=== PATIENT | female | born 1950 | race Caucasian/White ===

== ENCOUNTER 2022-01-11 10:00 | Outpatient (RCR) | payer MEDICARE, SELFPAY | END 2022-01-13 08:35 | disposition home or self-care (01) | PROVIDERS: PCP Physician Assistant Medical; Visit Provider Psychiatry & Neurology Neurology | DX: G43.009 Migraine without aura, not intractable, without status migrainosus (principal); M54.81 Occipital neuralgia; M62.838 Other muscle spasm; G44.86 Cervicogenic headache; M54.2 Cervicalgia; Z51.89 Encounter for other specified aftercare | CPT/HCPCS: 97110; 97140; 97535 ==

== ENCOUNTER 2022-03-09 08:40 | Outpatient (CLI) | payer MEDICARE, SELFPAY ==
[2022-03-09 14:25] LABS: Albumin* 4.6 g/dL (3.3-5.0)
[2022-03-09 14:26] LABS: Chloride* 103 mmol/L (96-114); Potassium* 4.9 mmol/L (3.6-5.1); Sodium* 141 mmol/L (135-149)
[2022-03-09 14:28] LABS: Bilirubin Total* 0.5 mg/dL (0.1-1.5); Carbon Dioxide* 30 mmol/L (20-32); Cholesterol* 191 mg/dL (90-199); Creatinine* 0.5 mg/dL (0.5-1.5); Estimated Glomerular Filt Rate 101 ml/min
[2022-03-09 14:29] LABS: Alanine Aminotransferase* 20 U/L (4-35); Alkaline Phosphatase* 111 U/L (40-150); Aspartate Amino Transferase* 28 U/L (12-35); Blood Urea Nitrogen* 15 mg/dL (7-30); Calcium* 9.5 mg/dL (8.4-10.6); Glucose* 107 mg/dL (60-115); HDL Cholesterol* 97 mg/dL (>=50); LDL Cholesterol Calculated 83 mg/dL (<100); Total Protein* 7.6 g/dL (6.0-8.3); Triglycerides* 54 mg/dL (40-149)
== END 2022-03-09 08:41 | disposition home or self-care (01) ==
PROVIDERS: PCP Physician Assistant Medical; Visit Provider Physician Assistant Medical
DX: Z00.00 Encounter for general adult medical examination without abnormal findings (principal); E78.5 Hyperlipidemia, unspecified; F41.9 Anxiety disorder, unspecified; E87.5 Hyperkalemia; R80.9 Proteinuria, unspecified
CPT/HCPCS: 80053; 80061; 84443

== ENCOUNTER 2022-04-27 13:09 | Outpatient (CLI) | payer MEDICARE, SELFPAY ==
--- NOTE | 2022-04-27 13:30 | CRLHL7_ITS ---
For Patients: As a result of the Century Cures Act, medical imaging exams and procedure reports are released immediately into your electronic medical record. You may view this report before your referring provider. If you have questions, please contact your health care provider. DXA BONE MINERAL DENSITY STUDY Reason for exam: Osteopenia. Current height (in): 69.5. Weight (lb): 130. Menopause age: 53. Ethnicity: White. 1. Have you had a previous hip or vertebral fracture? No. 2. Have you had any fractures during your adult life which did not result from significant trauma (e.g., auto accident)? No. 3. Did either of your parents have a hip fracture? No. 4. Do you smoke? No. 5. Have you ever taken Glucocorticoids? No. 6. Do you have rheumatoid arthritis? No. 7. Do you have secondary osteoporosis? No. 8. Do you drink 3 or more alcoholic drinks per day? No. 9. Are you being treated for osteoporosis? No. 10. Have you ever taken any of the following medications: Actonel, Evista, Fosamax, Miacalcin, Reclast, Boniva, Forteo, HRT (i.e., estrogen/hormone therapy), Protelos, Prolia, Vitamin D, Calcium, other ??? please specify. ANSWER: Yes, vitamin D and calcium. 11. Do you have any of the following medical conditions: Anorexia or bulimia, asthma or emphysema, end stage renal disease, hyperparathyroidism, any seizure disorders, cancer, inflammatory bowel diseases, hysterectomy, other ??? please specify. ANSWER: Yes, inflammatory bowel disease. 12. What was your maximum height (inches)? 70.5. 13. Do you perform weight bearing exercise regularly? Yes. 14. Do you regularly consume dairy products? Yes. 15. Do you drink caffeinated beverages? No. If female: 16. At what age did your period start? 17. 17. Are you premenopausal? No. 18. How many full-term pregnancies have you had? 2. 19. Have you ever missed your period for more than 6 months in a row (not including or menopause)? No. TECHNIQUE: Bone mineral density study was performed using the [employer]. FINDINGS: The results of the study expressed as bone mineral density (BMD) are as follows: Lumbar spine L1 to L3: BMD: 1.066 g/cm2. T-score: 0.4. Z-score: 2.5 Neck Left: BMD: 0.712 g/cm2. T-score: -1.2. Z-score: 0.6 Right: BMD: 0.626 g/cm2. T-score: -2.0. Z-score: -0.2 Total Left: BMD: 0.844 g/cm2. T-score: -0.8. Z-score: 0.7 Right: BMD: 0.810 g/cm2. T-score: -1.1. Z-score: 0.5 IMPRESSION: Osteopenia. *Comparison exams done prior to 11/2019 were performed on different unit, [facility] [employer]. COMPARISON: Compared with scan of 03/27/2019, the bone mineral density has increased by 27.8 percent at the spine and increased by 1.3 percent at the hip. Compared with scan of 03/12/2017, the bone mineral density has increased by 2.3 percent at the spine and increased by 1.4 percent at the hip. FRAX 10-year Fracture Risk Major Osteoporotic Fracture: 9.7% Hip Fracture: 2.0% Reported Risk Factors: [place] () Neck BMD=0.626, BMI=18.9 Kemal Ugalde M.D. Diagnostic Radiologist [email or web address] lees/Dictated by: Kemal Ugalde MD @ 04/28/2022 8:13:00 AM (Electronically Signed)
== END 2022-04-27 13:10 | disposition home or self-care (01) ==
LOC: RAD 13:09
PROVIDERS: PCP Physician Assistant Medical; Visit Provider Physician Assistant Medical
DX: M85.80 Other specified disorders of bone density and structure, unspecified site (principal); M85.89 Other specified disorders of bone density and structure, multiple sites
CPT/HCPCS: 77080

== ENCOUNTER 2022-06-08 07:41 | Outpatient (CLI) | payer MEDICARE, SELFPAY ==
--- NOTE | 2022-06-08 08:00 | NM_ITS ---
Final Report Patient: MARRY MEESK Facility:?[facility] Patient ID:?[id number] Study:?NM Cardiac Procedure MYOCARDIAL PERFUSION-06/08/2022 10:43:05 AM Ordering Physician:LARRY Final Report: [facility] ? [facility] MYOCARDIAL PERFUSION SCAN CLINICAL HISTORY: 71-year-old female. Atrial fibrillation. Hypercholesterolemia. Family history of heart disease. Height 5 feet 10 inches, weight 130 pounds. TECHNIQUE: (Resting SPECT and Stress Gated SPECT with wall motion and ejection fraction) Stress: Treadmill (5 minutes 50 seconds) Maximum heart rate: 143 bpm Maximum systolic blood pressure: 170 mmHg systolic Rate pressure product: 24,310 Dose (Stress/Rest): 32.2 mCi/8.08 mCi Tc-99m Sestamibi (IV) Comparison: None FINDINGS: There is good uptake of activity by the left ventricle. No left ventricular enlargement is noted. End-diastolic volume 79 mL. End-systolic volume 11 mL. Mild motion artifact on stress and rest images. There are no significant fixed or reversible defects identified to indicate infarct or ischemia. Gated images demonstrate a normal left ventricular ejection fraction of greater than 70 percent. No regional wall motion abnormalities are identified. IMPRESSION: 1. No evidence of significant myocardial ischemia or infarction. 2. Normal left ventricular ejection fraction of greater than 70 percent. This study was jointly reviewed by radiology and cardiology. OKSANA TAY M.D. Diagnostic/Nuclear Medicine Radiologist [email or web address] ESTELA/travis D& Transcribed: 4:10 pm SILVERIO PENA M.D. CO-READER Cardiology DW/Dictated by: Oksana Tay MD @ 06/08/2022 2:28:00 PM (Electronic Signature)
--- NOTE | 2022-06-08 09:53 | P.STN_ITS ---
Stress Test Note Date Time Seen by Provider: Date Seen: 06/08/22 Date of test: 06/08/22 Providers Referring provider: Gato Ruiz Primary care provider: Mya Johnson Stress test physician: Jody Bradford Stress Test Note Stress test ordered: Stress Myoview Indication for test: Atrial fibrillation, episodes of heavy pounding heart. Results discussion: Resting EKG: Sinus bradycardia, 50 beats per minute. Flipped T-waves V1. Resting blood pressure: 130/76 Stress test: Patient exercised on the treadmill following standard Shad protocol. Radioisotope was infused at target heart rate. Patient was able to exercise a bit longer. Stress test was terminated for reaching maximum heart rate inpatient becoming short of breath with the level of activity. She stated she had no chest symptoms. Patient was able to exercise to 7 minutes 31 sec onds. She achieved a maximum heart rate of 143 beats per minute which was 111% of a calculated target of 128. She had a a rate pressure product of 23,881 based on a systolic blood pressure 167 heart rate of 143. No arrhythmia, no concerning EKG changes. Patient discharged to have post stress imaging in stable condition. Impression: Subjectively negative, objectively negative EKG portion of this stress Myoview. Follow up suggested: Patient will be discharged after she has had her post stress imaging. She will await a report from the ordering test manager.
[2022-06-08 10:00] VITALS: BP 135/77; PULSE 66
== END 2022-06-08 07:42 | disposition home or self-care (01) ==
LOC: STRESS 07:41
PROVIDERS: PCP Physician Assistant Medical; Visit Provider Internal Medicine
DX: I48.0 Paroxysmal atrial fibrillation (principal)
CPT/HCPCS: 78452; 93016; 93017; A9500

== ENCOUNTER 2022-07-27 08:58 | Outpatient (CLI) | payer MEDICARE, SELFPAY ==
--- NOTE | 2022-07-27 09:15 | CRLHL7_ITS ---
For Patients: As a result of the Cures Act, medical imaging exams and procedure reports are released immediately into your electronic medical record. You may view this report before your referring provider. If you have questions, please contact your health care provider. BILATERAL SCREENING MAMMOGRAM WITH COMPUTER-AIDED DETECTION AND TOMOSYNTHESIS TECHNIQUE: CC and MLO views were obtained. These mammographic images have been obtained using full-field digital technique. These mammographic images were interpreted with the benefit of computer-aided detection. Breast Tomosynthesis was used in this interpretation. COMPARISON FILM: 07/15/21, 06/28/20, 06/02/20. FINDINGS: The breasts are heterogeneously dense, which may obscure small masses IMPRESSION: There is no radiographic evidence for malignancy. ASSESSMENT: BI-RADS Category 2: Benign RECOMMENDATION: Routine screening mammogram in 1 year. A lay language report of this examination will be provided to the patient. Kemal Ugalde M.D. Diagnostic Radiologist [email or web address] Transcribed: 1:52 p.joi lees/Dictated by: Kemal Ugalde MD @ 07/27/2022 10:13:00 AM (Electronically Signed)
== END 2022-07-27 08:59 | disposition home or self-care (01) ==
LOC: MAMMO 08:59
PROVIDERS: PCP Physician Assistant Medical; Visit Provider Physician Assistant Medical
DX: Z12.31 Encounter for screening mammogram for malignant neoplasm of breast (principal); R92.2 Inconclusive mammogram
CPT/HCPCS: 77063; 77067

== ENCOUNTER 2023-03-08 08:06 | Outpatient (CLI) | payer MEDICARE, SELFPAY | END 2023-03-08 08:07 | disposition home or self-care (01) | LOC: NFLDREF 03-12 12:57 | PROVIDERS: PCP Physician Assistant Medical; Referring Provider Physician Assistant Medical; Visit Provider Physician Assistant Medical | DX: Z00.00 Encounter for general adult medical examination without abnormal findings (principal); E78.5 Hyperlipidemia, unspecified; E87.5 Hyperkalemia; R53.83 Other fatigue; I48.91 Unspecified atrial fibrillation; F41.9 Anxiety disorder, unspecified | CPT/HCPCS: 80053; 80061; 84443 ==

== ENCOUNTER 2023-11-22 08:00 | Outpatient (CLI) | payer MEDICARE, SELFPAY | END 2023-11-22 08:01 | disposition home or self-care (01) | LOC: NFLDREF 11-26 20:42 | PROVIDERS: PCP Physician Assistant Medical; Referring Provider Physician Assistant Medical; Visit Provider Internal Medicine Nephrology | DX: R80.9 Proteinuria, unspecified (principal); E78.5 Hyperlipidemia, unspecified; E87.5 Hyperkalemia | CPT/HCPCS: 80061; 80069; 82043; 82570; 84450; 84460; 84550; 86140; 87086 ==

== ENCOUNTER 2024-01-25 18:58 | Emergency (ER) | payer MEDICARE, SELFPAY ==
[2024-01-25 19:04] VITALS: BP 132/78; PULSE 64; RESP 18; O2SAT 97; BMI 19.9
--- NOTE | 2024-01-25 20:53 | CRLHL7_ITS ---
For Patients: As a result of the Cures Act, medical imaging exams and procedure reports are released immediately into your electronic medical record. You may view this report before your referring provider. If you have questions, please contact your health care provider. Indication: Injury, pain. Technique: Right foot, 3 views. Comparison: None. Findings/Impression: Bones: Alignment is normal. No displaced fractures or bone lesions. Joint spaces: Unremarkable. Soft tissues: Unremarkable. Dictated by Roly Moon MD @ 01/25/2024 10:08:47 PM (Electronically Signed)
--- NOTE | 2024-01-25 21:14 | ED.LOWEXIN ---
HPI - Extremity Injury (Lower) General Chief Complaint: Extremity Pain/Injury, Lower Stated Complaint: R foot injury Time Seen by Provider: 01/25/24 20:22 Source: patient Mode of arrival: ambulatory Limitations: no limitations History of Present Illness HPI Narrative: Patient is a 73-year-old female presenting for right foot pain. States roughly 16:00 she had some cramping of her right foot while she was sitting in her chair reading a book. Since then she has been having pain in lateral arch of her right foot. Denies ever having pain like this before. Denies having issues with cramping in the past. No history of electrolyte abnormalities. Denies any injuries to this foot. Was concerned it could be related to a blood clot. No history of blood clots. Is not having any sensory deficits at this time. No calf pain. Denies leg swelling. Related Data Home Medications ?Medication ?Instructions ?Recorded ?Confirmed Lactobacillus PO 03/09/22 11/26/23 Melatonin PO 03/09/22 11/26/23 betamethasone dipropionate 0.05 % 1 topical BID 03/09/22 11/26/23 topical ointment calcium citrate 315 mg-vitamin D3 1 tab PO BID 03/09/22 01/25/24 5 mcg (200 unit) tablet flecainide 50 mg tablet mg PO BID 03/09/22 11/26/23 folic acid 800 mcg tablet 800 mcg PO DAILY 03/09/22 01/25/24 mesalamine 1.2 gram tablet,delayed g PO BID 03/09/22 11/26/23 release omega-3 fatty acids 1,000 mg 1,000 mg PO QDAY 03/09/22 01/25/24 capsule pantoprazole 20 mg tablet,delayed mg PO DAILY 03/09/22 11/26/23 release polyethylene glycol 3350 17 g PO BID 03/09/22 11/26/23 gram/dose oral powder triamcinolone acetonide 0.1 % 0.1 topical PRN 03/09/22 11/26/23 topical ointment apixaban 5 mg tablet (Eliquis) 5 mg PO BID 09/01/22 01/25/24 gabapentin 100 mg capsule 200 mg PO TID 09/01/22 01/25/24 mupirocin 2 % topical ointment 1 applic topical .prn PRN 09/01/22 01/25/24 patiromer calcium sorbitex 16.8 16.8 g PO Q OTHER DAY 11/27/22 01/25/24 gram oral powder packet clobetasol 0.05 % topical cream 1 applic topical BID 03/14/23 01/25/24 triamcinolone acetonide 0.1 % 1 applic topical BID-TID 03/14/23 01/25/24 topical cream dicyclomine 20 mg tablet 10 mg PO ONCE 04/19/23 01/25/24 metoprolol succinate 25 mg 12.5 mg PO QDAY 04/19/23 01/25/24 tablet,extended release 24 hr Previous Rx's ?Medication ?Instructions ?Recorded atorvastatin 10 mg tablet 10 mg PO .Bedtime #90 tabs 03/12/23 sertraline 25 mg tablet 25 mg PO DAILY #90 tabs 03/12/23 sumatriptan succinate 100 mg tablet 100 mg PO ONCE #9 tabs 01/10/24 Allergies Allergy/AdvReac Type Severity Reaction Status Date / Time amoxicillin Allergy Unknown Gastrointestinal Verified 01/25/24 19:07 Upset Sulfa (Sulfonamide Allergy Unknown Hives Verified 01/25/24 19:07 Antibiotics) Review of Systems Narrative: Pertinent systems reviewed and were negative unless stated HPI PFSH PFS Medical History (Updated 01/25/24 @ 22:25 by Vahid Babcock DO) Bronchitis ?J40 - Bronchitis, not specified as acute or chronic (ICD-10) Cough ?R05.9 - Cough, unspecified (ICD-10) Osteoporosis ?M81.0 - Age-related osteoporosis without current pathological fracture (ICD-10) Herpes zoster ?B02.9 - Zoster without complications (ICD-10) Surgical History (Updated 03/15/23 @ 09:10 by Kayla Thakkar ~ [facility]) Cataract ?H26.9 - Unspecified cataract (ICD-10) History of colonoscopy ?Z98.890 - Other specified postprocedural states (ICD-10) Family History (Updated 03/08/22 @ 20:54 by Lizbeth Meek) Paternal Grandmother Breast cancer Paternal Grandfather Coronary artery disease Father Hearing loss Hyperchloremia High blood pressure Colon polyps Mother ALS (amyotrophic lateral sclerosis) Hyperchloremia High blood pressure Brother Colon polyps Uncle Pancreatic cancer Social History Smoking Status: Never smoker Little interest or pleasure in doing things: not at all Feeling down, depressed, or hopeless: not at all Exam Narrative: Exam Narrative: Const: Well-nourished, Well-developed, in mild distress Eyes: PERRL, no conjunctival injection, and symmetrical lids HENT: Atraumatic external nose and ears. Moist mucous membranes. Extremities: Dorsalis pedis pulses +2 bilaterally MSK:Extremities w/o deformity, Normal Active ROM, tenderness noted at the 5th metatarsal base. Skin: Warm, Dry. No rashes or lesions. Neuro: Normal Muscle tone, No focal neurological deficits. Psych: Awake, Alert, & Oriented x3. Appropriate mood and affect. Const: Vital Signs, click to edit/add: Vital Signs - 24 hr 01/25/24 19:04 Pulse Rate [Pulse Oximeter] 64 Respiratory Rate 18 Blood Pressure [Ri ght Upper Arm] 132/78 Pulse Oximetry 97 Oxygen Delivery Me thod Room Air Course Vital Signs Vital signs: Initial Vital Signs Temperature Source Temporal Artery Scan 01/25/24 19:04 Pulse Rate 64 01/25/24 19:04 Respiratory Rate 18 01/25/24 19:04 Blood Pressure 132/78 01/25/24 19:04 Blood Pressure Mean 96 01/25/24 19:04 Blood Pressure Position Sitting 01/25/24 19:04 Pulse Oximetry 97 01/25/24 19:04 Oxygen Delivery Method Room Air 01/25/24 19:04 Vital Signs Pulse Rate 64 01/25/24 19:04 Respiratory Rate 18 01/25/24 19:04 Blood Pressure 132/78 01/25/24 19:04 Pulse Oximetry 97 01/25/24 19:04 Oxygen Delivery Method Room Air 01/25/24 19:04 Pulse Rate 64 01/25/24 19:04 Respiratory Rate 18 01/25/24 19:04 Blood Pressure 132/78 01/25/24 19:04 Pulse Oximetry 97 01/25/24 19:04 Oxygen Delivery Method Room Air 01/25/24 19:04 MDM - Extremity Injury (Lower) MDM Narrative Medical decision making narrative: Patient is a 73-year-old female presenting for right foot pain. At this time seems very unlikely to be related to a blood clot as she is having no leg swelling we do not, as he clinically relevant blood clots in the foot. Could be a muscle strain causing the issue from the cramp. Will do an x-ray though to make sure there are no fractures. Is not wanting anything for pain at this time. X-ray returned shows no concerning abnormalities. I believe most likely she had a muscle strain that occurred from the muscle spasm causing her pain. She will be discharged at this time she is agreeable to this plan. Imaging Data Right foot x-ray: Radiologist's impression: Bones: Alignment is normal. No displaced fractures or bone lesions. Joint spaces: Unremarkable. Soft tissues: Unremarkable. Dictated by Roly Moon MD @ 01/25/2024 10:08:47 PM Discharge Plan Discharge Clinical Impression: Strain of foot, right Patient Disposition: Home, Self-Care Condition: Stable Instructions: Muscle Strain (DC) Additional Instructions: Use the João wrap to help with symptoms. Take Tylenol as needed for pain. Also try ice for 20 minutes at a time up to 3 times a day. Prescriptions: No Action mesalamine 1.2 gram tablet,delayed release (DR/EC) PO BID calcium citrate-vitamin D3 315 mg-5 mcg (200 unit) tablet 1 tab PO BID folic acid 800 mcg tablet 800 mcg PO DAILY betamethasone dipropionate 0.05 % ointment 1 topical BID polyethylene glycol 3350 17 gram/dose powder PO BID flecainide 50 mg tablet PO BID triamcinolone acetonide 0.1 % ointment 0.1 topical PRN pantoprazole 20 mg tablet,delayed release (DR/EC) PO DAILY omega-3 fatty acids 1,000 mg capsule 1,000 mg PO QDAY Melatonin PO Lactobacillus PO patiromer calcium sorbitex 16.8 gram powder in packet 16.8 g PO Q OTHER DAY dicyclomine 20 mg tablet 10 mg PO ONCE metoprolol succinate 25 mg tablet extended release 24 hr 12.5 mg PO QDAY Patient Comments: QOD Eliquis 5 mg tablet 5 mg PO BID mupirocin 2 % ointment 1 applic topical .prn PRN gabapentin 100 mg capsule 200 mg PO TID atorvastatin 10 mg tablet 10 mg PO .Bedtime Qty: 90 3RF Rx Instructions: once daily for cholesterol sertraline 25 mg tablet 25 mg PO DAILY Qty: 90 3RF triamcinolone acetonide 0.1 % cream 1 applic topical BID-TID clobetasol 0.05 % cream 1 applic topical BID sumatriptan succinate 100 mg tablet 100 mg PO ONCE Qty: 9 2RF Follow Up/Referrals: Mya Johnson PA-C [Primary Care Provider] - Stand Alone Forms: [facility] Info Instructions
== END 2024-01-25 22:51 | disposition home or self-care (01) ==
PROVIDERS: Emergency Provider Student in an Organized Health Care Education/Training Program; PCP Physician Assistant Medical
DX: S96.111A Strain of muscle and tendon of long extensor muscle of toe at ankle and foot level, right foot, initial encounter (principal)
CPT/HCPCS: 73630; 99282; 99283

== ENCOUNTER 2024-02-21 10:56 | Outpatient (CLI) | payer MEDICARE, SELFPAY | END 2024-02-21 10:57 | disposition home or self-care (01) | PROVIDERS: PCP Physician Assistant Medical; Visit Provider Physician Assistant Medical | DX: R53.83 Other fatigue (principal); R63.4 Abnormal weight loss; E87.5 Hyperkalemia; K51.90 Ulcerative colitis, unspecified, without complications | CPT/HCPCS: 80053; 82306; 82607; 84443; 86140 ==

== ENCOUNTER 2024-02-28 08:27 | Outpatient (CLI) | payer MEDICARE, SELFPAY ==
--- NOTE | 2024-02-28 09:00 | CRLHL7_ITS ---
For Patients: As a result of the Century Cures Act, medical imaging exams and procedure reports are released immediately into your electronic medical record. You may view this report before your referring provider. If you have questions, please contact your health care provider. INDICATION: 75 year-old female. Abnormal weight loss. Gastroesophageal reflux disease without esophagitis. Right hip pain. TECHNIQUE: Contrast-enhanced CT of the chest abdomen and pelvis. 64 cc nonionic Isovue-370 administered. COMPARISON: Correlation is made with an abdominal pelvic CT January 01, 2018. FINDINGS: CT chest: Biapical fibrosis/pleural thickening. Both lungs are otherwise clear. No pneumothoraces, nodules, pleural, or pericardial effusions. No evidence for thoracic lymphadenopathy. The included thyroid gland and breasts are unremarkable. Dense coronary artery calcifications and/or coronary artery stents particularly in the LAD territory. Vascular calcification within a normal caliber thoracic aorta. CT of the abdomen and pelvis: The liver, spleen, pancreas, gallbladder, and adrenal glands are normal. 2.1 cm cyst superior pole right kidney. No renal stone or hydronephrosis. Dense arterial vascular calcification within the abdominal aorta and iliac arteries. Normal inferior vena cava. No small or large bowel obstruction. No ascites or lymphadenopathy. Diminutive postmenopausal uterus. The urinary bladder is unremarkable. No adnexal mass. No evidence for appendicitis or diverticular disease. No ascites or lymphadenopathy. The included skeleton demonstrates a partial compression fracture of the superior endplate of T11 new when compared to the prior abdominal pelvic CT January 01, 2018. Multilevel degenerative disc disease L1 through L5. No acute fractures. The included skeleton is negative for lytic or blastic lesions. Mild symmetric narrowing of the hip joints. No hip fracture or dislocation identified. IMPRESSION: 1. No evidence for occult malignancy or metastatic disease. 2. Biapical fibrosis/pleural thickening. 3. No acute cardiopulmonary or abdominopelvic process identified. 4. Partial compression fracture superior endplate T11 new when compared to January 01, 2018. Please note that all CT scans at this facility use dose modulation, iterative reconstruction, and/or weight-based dosing when appropriate to reduce radiation dose to as low as reasonably achievable. Dictated by Viral Becker MD @ 02/28/2024 12:32:50 PM (Electronically Signed)
== END 2024-02-28 08:28 | disposition home or self-care (01) ==
LOC: CT 08:27
PROVIDERS: PCP Physician Assistant Medical; Visit Provider Physician Assistant Medical
DX: R63.4 Abnormal weight loss (principal); J84.10 Pulmonary fibrosis, unspecified; K21.9 Gastro-esophageal reflux disease without esophagitis; M48.54XS Collapsed vertebra, not elsewhere classified, thoracic region, sequela of fracture; R41.89 Other symptoms and signs involving cognitive functions and awareness; R53.83 Other fatigue; R63.0 Anorexia; M25.551 Pain in right hip
CPT/HCPCS: 71260; 74177; Q9967

== ENCOUNTER 2024-03-13 13:48 | Outpatient (CLI) | payer MEDICARE, SELFPAY ==
--- NOTE | 2024-03-13 14:00 | CRLHL7_ITS ---
For Patients: As a result of the Century Cures Act, medical imaging exams and procedure reports are released immediately into your electronic medical record. You may view this report before your referring provider. If you have questions, please contact your health care provider. DXA BONE MINERAL DENSITY STUDY Reason for exam: Screening. Current height (in): 70. Weight (lb): 130. Menopause age: 53. Ethnicity: White. 1. Have you had a previous hip or vertebral fracture? Yes. 2. Have you had any fractures during your adult life which did not result from significant trauma (e.g., auto accident)? Yes. 3. Did either of your parents have a hip fracture? No. 4. Do you smoke? No. 5. Have you ever taken Glucocorticoids? No. 6. Do you have rheumatoid arthritis? No. 7. Do you have secondary osteoporosis? No. 8. Do you drink 3 or more alcoholic drinks per day? No. 9. Are you being treated for osteoporosis? No. 10. Have you ever taken any of the following medications: Actonel, Evista, Fosamax, Miacalcin, Reclast, Boniva, Forteo, HRT (i.e. estrogen/hormone therapy), Protelos, Prolia, Vitamin D, Calcium, other ??? please specify. ANSWER: Yes, Fosamax, vitamin D, calcium. 11. Do you have any of the following medical conditions: Anorexia or bulimia, asthma or emphysema, end stage renal disease, hyperparathyroidism, any seizure disorders, cancer, inflammatory bowel diseases, hysterectomy, other ??? please specify. ANSWER: Yes, Inflammatory bowel disease. 12. What was your maximum height (inches)? 70.5. 13. Do you perform weight bearing exercise regularly? Yes. 14. Do you regularly consume dairy products? Yes. 15. Do you drink caffeinated beverages? No. 16. At what age did your period start? 17. 17. Are you premenopausal? No. 18. How many full-term pregnancies have you had? 2. 19. Have you ever missed your period for more than 6 months in a row (not including or menopause)? No. TECHNIQUE: Bone mineral density study was performed using the [employer]. FINDINGS: The results of the study expressed as bone mineral density (BMD) are as follows: Lumbar spine L1: BMD: 0.901 g/cm2. T-score: -0.8. Z-score: 1.2. Neck Left: BMD: 0.683 g/cm2. T-score: -1.5. Z-score: 0.4. Right: BMD: 0.642 g/cm2. T-score: -1.9. Z-score: 0.1. Total Left: BMD: 0.858 g/cm2. T-score: -0.7. Z-score: 1.0. Right: BMD: 0.885 g/cm2. T-score: -0.5. Z-score: 1.2. IMPRESSION: Osteopenia. *Comparison exams done prior to 11/2019 were performed on different unit, [facility]. COMPARISON: Compared with scan of 04/27/2022, the bone mineral density has increased by 0.2 percent at the spine and increased by 5.3 percent at the hip. Compared with scan of 03/27/2019, the bone mineral density has increased by 21.5 percent at the spine and increased by 1.3 percent at the hip. Kemal Ugalde M.D. Diagnostic Radiologist [email or web address] [email or web address] / bM/Dictated by: Kemal Ugalde MD @ 03/14/2024 12:09:00 PM (Electronically Signed)
== END 2024-03-13 13:49 | disposition home or self-care (01) ==
LOC: RAD 13:48
PROVIDERS: PCP Physician Assistant Medical; Visit Provider Physician Assistant Medical
DX: Z13.820 Encounter for screening for osteoporosis (principal); M85.89 Other specified disorders of bone density and structure, multiple sites; Z78.0 Asymptomatic menopausal state
CPT/HCPCS: 77080

== ENCOUNTER 2024-04-15 14:46 | Outpatient (CLI) | payer MEDICARE, SELFPAY ==
--- NOTE | 2024-04-15 15:00 | CRLHL7_ITS ---
For Patients: As a result of the Century Cures Act, medical imaging exams and procedure reports are released immediately into your electronic medical record. You may view this report before your referring provider. If you have questions, please contact your health care provider. BILATERAL SCREENING MAMMOGRAM WITH COMPUTER-AIDED DETECTION AND TOMOSYNTHESIS TECHNIQUE: CC and MLO views were obtained. These mammographic images have been obtained using full-field digital technique. These mammographic images were interpreted with the benefit of computer-aided detection. Breast Tomosynthesis was used in this interpretation. COMPARISON FILM: 07/27/22, 07/15/21, 06/28/20. FINDINGS: The breasts are heterogeneously dense, which may obscure small masses IMPRESSION: There is no radiographic evidence for malignancy. ASSESSMENT: BI-RADS Category 2: Benign RECOMMENDATION: Routine screening mammogram in 1 year. A lay language report of this examination will be provided to the patient. Kemal Ugalde M.D. Diagnostic Radiologist [email or web address] VITOR/Dictated by: Kemal Ugalde MD @ 04/18/2024 8:34:00 AM (Electronically Signed)
== END 2024-04-15 14:47 | disposition home or self-care (01) ==
LOC: MAMMO 14:47
PROVIDERS: PCP Physician Assistant Medical; Visit Provider Physician Assistant Medical
DX: Z12.31 Encounter for screening mammogram for malignant neoplasm of breast (principal); R92.333 Mammographic heterogeneous density, bilateral breasts
CPT/HCPCS: 77063; 77067

== ENCOUNTER 2024-06-03 12:48 | Outpatient (CLI) | payer MEDICARE, SELFPAY ==
--- NOTE | 2024-06-03 13:00 | CRLHL7_ITS ---
For Patients: As a result of the Century Cures Act, medical imaging exams and procedure reports are released immediately into your electronic medical record. You may view this report before your referring provider. If you have questions, please contact your health care provider. INDICATION: Right hip pain. COMPARISON: 10/05/2021. TECHNIQUE: Sagittal T1, T2, and STIR sequences. Axial T1 and T2 weighted sequences. FINDINGS: Lumbar curve convex to the right. In sagittal plane, normal vertebral body alignment. No fractures. No vertebral body loss of height. No spondylolisthesis. No ligamentous injury. No suspicious osseous lesions. Normal conus terminates at L1. T12-L1: No spinal canal or neural foraminal narrowing. L1-2: Disc degeneration. Diffuse disc bulge eccentric to the left. Modic type 1 endplate changes. Mild narrowing of spinal canal. No neural foraminal narrowing. L2-3: Disc degeneration. Diffuse disc bulge eccentric to the left. Modic type 1 endplate changes. Mild narrowing of spinal canal. No neural foraminal narrowing. Mild facet arthropathy. L3-4: Disc degeneration loss of disc height. Diffuse disc bulge eccentric to the right. Modic type 1 endplate changes. Mild narrowing of spinal canal. No neural foraminal narrowing. L4-5: Disc degeneration and diffuse disc bulge eccentric to the right. No narrowing of the spinal canal. Right subarticular recess narrowing with potential impingement of the traversing right L5 nerve root. Mild narrowing of the right neural foramen. No narrowing of the left neural foramen. Mild facet arthropathy. L5-S1: No narrowing of spinal canal. No impingement of the traversing S1 nerve roots. No neural foraminal narrowing. Normal visualized SI joints. IMPRESSION: 1. Normal alignment. No fractures. 2. Lumbar spondylosis. 3. At L4-5, potential impingement of the traversing right L5 nerve root. 4. Multilevel mild narrowing of the spinal canal as described above Dictated by Harry Thompson MD @ 06/04/2024 2:24:36 PM (Electronically Signed)
== END 2024-06-03 12:49 | disposition home or self-care (01) ==
LOC: MRI 12:49
PROVIDERS: PCP Physician Assistant Medical; Visit Provider Physician Assistant Medical
DX: M25.551 Pain in right hip (principal); M47.896 Other spondylosis, lumbar region; M54.16 Radiculopathy, lumbar region; G89.29 Other chronic pain
CPT/HCPCS: 72148

== ENCOUNTER 2024-08-05 09:19 | Outpatient (CLI) | payer MEDICARE, SELFPAY | END 2024-08-05 09:20 | disposition home or self-care (01) | LOC: INJ CL 09:20 | PROVIDERS: PCP Physician Assistant Medical; Visit Provider Family Medicine | DX: M51.360 Other intervertebral disc degeneration, lumbar region with discogenic back pain only (principal); M47.26 Other spondylosis with radiculopathy, lumbar region | CPT/HCPCS: 64483; J1100; Q9966 ==

== ENCOUNTER 2024-09-24 09:06 | Emergency (ER) | payer MEDICARE, SELFPAY ==
--- OUTSIDE RECORDS SUMMARY | 2024-09-24 09:08 | XMS_ITS | Clinical Summary ---
Author Organization [facility] Address [address] , [address] [place] [address] Phone Care Team Providers Care Gear Repairer Name Role Phone [facility] Unavailable Unava ilable Conditions or Problems Problem Name Problem Code Onset Date Status Entry Date Provider Comment Standard Description Annotate Myalgia of auxiliary muscles, head and neck 72844933 (SNOMED CT) 03/04 Active 03/04 Verena Cheung DNP,RELATIONSHIP MANAGEMENT LEAD,CN P Muscle pain Myalgia of auxiliary muscles, head and neck 71676008 (SNOMED CT) 10/07 Resolved 10/07 Willy Boggs MD Muscle pain Neck pain 18087202 (SNOMED CT) 07/06 Resolved 07/06 Willy Boggs MD Neck pain Insomnia NOS 677560722 (SNOMED CT) 03/03 Active 03/03 Willy Boggs MD Insomnia Anxiety 46812237 (SNOMED CT) 03/03 Active 03/03 Willy Boggs MD Anxiety Tension headache, episodic 250096403 (SNOMED CT) 10/07 Active 10/07 Verena Cheung DNP,RELATIONSHIP MANAGEMENT LEAD,CN P Episodic tension-type headache Myalgia of auxiliary muscles, head and neck 50973672 (SNOMED CT) 10/07 Removed 10/07 Verena Cheung DNP,RELATIONSHIP MANAGEMENT LEAD,CN P Muscle pain Cervicogenic headache 570530048 (SNOMED CT) 07/13 Active 07/13 Teresa Lauri Cervicogenic headache COMMON MIGRAINE, NOT INTRACTABLE G43.009 (ICD-10-CM ) 02/10 Active 02/10 Verena Cheung DNP,RELATIONSHIP MANAGEMENT LEAD,CN P Migraine without aura, not intractable, without status migrainosus Migraine without aura, with intractable migraine, so stated, without mention of status migrainosus 966585466 (SNOMED CT) 09/20 Resolved 09/20 Verena Cheung DNP,RELATIONSHIP MANAGEMENT LEAD,CN P Refractory migraine without aura Occipital neuralgia, left M54.81 (ICD-10-CM ) 02/10 Active 02/10 Verena Cheung DNP,RELATIONSHIP MANAGEMENT LEAD,CN P Occipital neuralgia Migraine without aura, with intractable migraine, so stated, without mention of status migrainosus 929436908 (SNOMED CT) 09/20 Removed 09/20 Verena Cheung DNP,RELATIONSHIP MANAGEMENT LEAD,CN P Refractory migraine without aura Cervical spasm 47273150 (SNOMED CT) 09/20 Active 09/20 Verena Cheung DNP,RELATIONSHIP MANAGEMENT LEAD,CN P Muscle spasm of head and/or neck Cervicogenic headache 874097978 (SNOMED CT) 07/13 Inactive 07/13 Kaur Britten Elevated level of transaminase and lactic acid dehydrogenase Cervicogenic headache 022713559 (SNOMED CT) 07/13 Inactive 07/13 Verena Cheung DNP,RELATIONSHIP MANAGEMENT LEAD,CN P Cervicogenic headache Headache 891156007 (SNOMED CT) 07/06 Resolved 07/06 Verena Cheung DNP,RELATIONSHIP MANAGEMENT LEAD,CN P Elevated level of transaminase and lactic acid dehydrogenase Headache 012693336 (SNOMED CT) 07/06 Removed 07/06 Teresa Lauri Elevated level of transaminase and lactic acid dehydrogenase Neck pain 35221430 (SNOMED CT) 07/06 Removed 07/06 Jian Shepard MD Neck pain Headache 54007473 (SNOMED CT) 07/06 Inactive 07/06 Jian Shepard MD Headache Medications Medication Instructions Start Date Stop Date Generic Name NDC Provider GABAPENTIN 100 MG CAPS Take 100mg in the AM, 200mg in the afternoon and 200mg in the evening 03/03 gabapentin [id number] Willy Boggs MD GABAPENTIN 100 MG CAPS Take 200 mg in 8 am and 4 pm. In addition may take extra 200 mg as needed gabapentin 24004357529 Willy Boggs MD NORTRIPTYLINE HCL 10 MG CAPS 1 capsule by mouth as directed : 10 mg per night; then increase by 10 mg/night every 1 weeks until maximum 50 mg/night or until insomnia and pain controlled nortriptyline 28160045170 Willy Boggs MD GABAPENTIN 100 MG CAPS TAKE 1 CAPSULES BY MOUTH IN AM, 2 CAPS IN AFTERNOON, 2 CAPS AT BEDTIME TO PREVENT MIGRAINE. 09/23 gabapentin 93912401142 Willy Boggs MD GABAPENTIN 100 MG CAPS Take 100mg in the AM, 200mg in the afternoon and 200mg in the evening 03/03 gabapentin 65999821219 Willy Boggs MD ASPIRIN 81 MG TBEC Take 1 tablet by mouth once a day 08/06 aspirin 82638412510 Willy Boggs MD GABAPENTIN 100 MG CAPS TAKE 1 CAPSULES BY MOUTH IN AM, 2 CAPS IN AFTERNOON, 2 CAPS AT BEDTIME TO PREVENT MIGRAINE. 09/23 gabapentin 34029488102 Verena Cheung DNP,RELATIONSHIP MANAGEMENT LEAD,CAR SUPERVISOR DICYCLOMINE HCL 20 MG TABS Take 1 tablet by mouth four times a day dicyclomine 40456714999 Verena Francisigel DNP,RELATIONSHIP MANAGEMENT LEAD,CAR SUPERVISOR DICYCLOMINE HCL 10 MG CAPS dicyclomine 40852352776 Verena Francisigel DNP,RELATIONSHIP MANAGEMENT LEAD,CAR SUPERVISOR GABAPENTIN 100 MG CAPS TAKE 2 CAPSULES BY MOUTH IN AM, 2 CAPS IN AFTERNOON, 4 CAPS AT BEDTIME TO PREVENT MIGRAINE. gabapentin 38640432727 Willy Boggs MD GABAPENTIN 100 MG CAPS TAKE 2 CAPSULES BY MOUTH IN THE MORNING, 2 CAPS IN AFTERNOON AND 2 CAPS AT BED FOR MIGRAINE PREVENT 08/14 gabapentin 73378971477 Enid Burden PA-C GABAPENTIN 100 MG CAPS TAKE 2 CAPSULES BY MOUTH IN AM, 2 CAPS IN AFTERNOON, 4 CAPS AT BEDTIME TO PREVENT MIGRAINE. 09/19 gabapentin [id number] Enid Mcnamara Jenise MOURA LORAZEPAM 1 MG TABS Take 1 tablet by mouth once a day as needed 08/06 lorazepam 37362427151 Willy Boggs MD mitoMYcin 0.15 mg/mL ophth. soln. 0.5 mL syringe Use as directed 08/06 ZEN AMB MIX Willy Boggs MD ELIQUIS 2.5 MG TABS apixaban 10105373192 Willy Boggs MD METOPROLOL TARTRATE 25 MG TABS metoprolol tartrate 89661656184 Willy Boggs MD patiromer calcium sorbitex unspecified unspecified patiromer calcium sorbitex Willy Boggs MD GABAPENTIN 100 MG CAPS TAKE 2 CAPSULES BY MOUTH IN THE MORNING, 2 CAPS IN AFTERNOON AND 2 CAPS AT BED FOR MIGRAINE PREVENT 08/14 gabapentin 52999567045 Verena Cheung DNP,RELATIONSHIP MANAGEMENT LEAD,CAR SUPERVISOR aspirin 81 mg tablet,delayed release (DR/EC) Take 1 tablet by mouth once a day 08/06 aspirin 95988993242 Verena Cheung DNP,RELATIONSHIP MANAGEMENT LEAD,CAR SUPERVISOR ATORVASTATIN CALCIUM 10 MG TABS atorvastatin 46769156307 Verena Cheung DNP,RELATIONSHIP MANAGEMENT LEAD,CAR SUPERVISOR KP FOLIC ACID 800 MCG TABS folic acid 06647243269 Verena Cheung DNP,RELATIONSHIP MANAGEMENT LEAD,CAR SUPERVISOR MESALAMINE 1.2 [facility] mesalamine 87319210582 Verena Cheung DNP,RELATIONSHIP MANAGEMENT LEAD,CAR SUPERVISOR GABAPENTIN 100 MG CAPS 2 PILLS IN AM, 2 PILLS IN AFTERNOON AND 4 PILLS AT BEDTIME FOR MIGRAINE PREVENTION 08/18 gabapentin 92609932323 Verena Cheung DNP,RELATIONSHIP MANAGEMENT LEAD,CAR SUPERVISOR GABAPENTIN 100 MG CAPS TAKE 2 CAPSULES BY MOUTH IN THE MORNING, 2 CAPS IN AFTERNOON AND 4 CAPS AT BED FOR MIGRAINE PREVENT 07/01 gabapentin 69240224911 Jian Shepard MD ESTRACE 0.1 MG/GM CREA APPLY 0.5 GRAMS VAGINALLY NIGHTLY FOR 2 WEEKS THEN APPLY TWICE WEEKLY 07/05 estradiol 51820060270 Verena Cheung DNP,RELATIONSHIP MANAGEMENT LEAD,CAR SUPERVISOR SUMATRIPTAN SUCCINATE 100 MG TABS take 1 tab at start of severe headache, may repeat in 2 hours. max 2 tab/day, 3 day/week, 9 tab/month. sumatriptan succinate 08519884149 Verena Cheung DNP,RELATIONSHIP MANAGEMENT LEAD,CAR SUPERVISOR aspirin 81 mg tablet,delayed release (DR/EC) Take 2 tablet by mouth once a day 02/07 aspirin 81282273583 Verena Cheung DNP,RELATIONSHIP MANAGEMENT LEAD,CAR SUPERVISOR SERTRALINE HCL 25 MG TABS Take 1 tablet by mouth once a day 03/03 sertraline 08763743024 Verena Cheung DNP, APRN,CAR SUPERVISOR PANTOPRAZOLE SODIUM 40 MG TBEC Take 1 tablet by mouth every morning pantoprazole 50574814134 Verena Cheung DNP,RELATIONSHIP MANAGEMENT LEAD,CAR SUPERVISOR mitoMYcin 0.15 mg/mL ophth. soln. 0.5 mL syringe Use as directed 08/06 ZEN AMB MIX Verena Cheung DNP, APRN,CAR SUPERVISOR MELATONIN 1 MG TABS Take 1 tablet by mouth every night melatonin 95235477927 Verena Cheung DNP, APRN,CAR SUPERVISOR LORAZEPAM 1 MG TABS Take 1 tablet by mouth once a day as needed 08/06 lorazepam 92278960947 Verena Cheung DNP,RELATIONSHIP MANAGEMENT LEAD,CAR SUPERVISOR FLECAINIDE ACETATE 50 MG TABS Take 1 tablet by mouth every twelve hours flecainide 05196269669 Verena Cheung DNP,RELATIONSHIP MANAGEMENT LEAD,CAR SUPERVISOR ESTRACE 0.1 MG/GM CREA APPLY 0.5 GRAMS VAGINALLY NIGHTLY FOR 2 WEEKS THEN APPLY TWICE WEEKLY /15 estradiol 46532710686 Verena Cheung DNP,RELATIONSHIP MANAGEMENT LEAD,CAR SUPERVISOR Docosahexanoic Acid-Eicosapent Take by mouth FISH OIL Verena Cheung DNP,RELATIONSHIP MANAGEMENT LEAD,CAR SUPERVISOR GABAPENTIN 100 MG CAPS 1 PILL IN AM, 1 PILL IN AFTERNOON AND 3 PILLS AT BEDTIME FOR HEADACHES 02/10 gabapentin 36550467153 Verena Cheung DNP,RELATIONSHIP MANAGEMENT LEAD,CAR SUPERVISOR DICYCLOMINE HCL 20 MG TABS Take 1 tablet by mouth four times a day dicyclomine 32652014264 Verena Cheung DNP,RELATIONSHIP MANAGEMENT LEAD,CAR SUPERVISOR GABAPENTIN 100 MG CAPS 2 PILLS IN AM, 2 PILLS IN AFTERNOON AND 4 PILLS AT BEDTIME FOR MIGRAINE PREVENTION 10/07 gabapentin 96710743194 Verena Cheung DNP,RELATIONSHIP MANAGEMENT LEAD,CAR SUPERVISOR SUMATRIPTAN SUCCINATE 100 MG TABS take 1 tab at start of severe headache, may repeat in 2 hours. max 2 tab/day, 3 day/week, 9 tab/month. 02/10 SUMATRIPTAN SUCCINATE 33752912328 Verena Cheung DNP,RELATIONSHIP MANAGEMENT LEAD,CAR SUPERVISOR GABAPENTIN 100 MG CAPS 1 PILL IN AM, 1 PILL IN AFTERNOON AND 3 PILLS AT BEDTIME FOR HEADACHES 10/07 GABAPENTIN 72092668642 Verena Cheung DNP,RELATIONSHIP MANAGEMENT LEAD,CAR SUPERVISOR FOLIC ACID 800 MCG TABS Take 1 tablet by mouth once daily. 07/06 folic acid 800 mcg tablet 79567376635 Jian Shepard MD CLOBETASOL PROPIONATE 0.05 % OINT null 07/06 clobetasol 0.05% (TEMOVATE 0.05% OINTMENT) 0.05 % ointment 76943442163 Jian Shepard MD CALCIUM 600 MG CAPSULE Take 3 capsules by mouth once daily. 07/06 CALCIUM 600 MG CAPSULE Jian Shepard MD ACETAMINOPHEN 325 MG TABS Take 1-2 tablets by mouth every 4 hours if needed. Max acetaminophen dose: 4000mg in 24 hrs. 07/06 acetaminophen (TYLENOL) 325 mg tablet [id number] Jian Shepard MD DIPHENHYDRAMINE- ACETAMINOPHEN 25-500 MG (TYLENOL PM) 25-500 Take 1 tablet by mouth at bedtime if needed. Max acetaminophen dose: 4000mg in 24 hrs. 07/06 DIPHENHYDRAMINE- ACETAMINOPHEN 25-500 MG (TYLENOL PM) 25-500 Jian Shepard MD ECONAZOLE NITRATE 1 % CREA Apply topically to affected area(s) once daily. 07/06 econazole nitrate cream (SPECTAZOLE 1%) 1 % cream 58707267663 Jian Shepard MD MEDICATION ORDER COMPOSER Probiotic Daily-unknown dosage 07/06 MEDICATION ORDER COMPOSER Jian Shepard MD MULTIVITAMIN (DAILY MULTI-VITAMIN) TABLET Take 1 tablet by mouth once daily. 07/06 MULTIVITAMIN (DAILY MULTI-VITAMIN) TABLET Jian Shepard MD PEG 3350 17 GM/SCOOP POWD Take 17 g by mouth. 07/06 polyethylene glycol (MIRALAX; GLYCOLAX) 17 g powder for solu 60845619296 Jian Shepard MD ZINC 50 MG TABLET Take 1 tablet by mouth once daily. 07/06 ZINC 50 MG TABLET Jian Shepard MD zinc 50 mg tablet Take 1 tablet by mouth once daily. 07/06 zinc 50 mg tablet Cole Simmons SERTRALINE HCL 25 MG TABS Take 1 tablet by mouth once daily. 10/07 sertraline (ZOLOFT) 25 mg tablet 77215834125 Cole Simmons PEG 3350 17 GM/SCOOP POWD Take 17 g by mouth. 10/07 polyethylene glycol (MIRALAX; GLYCOLAX) 17 g powder for solu 73266991282 Cole Simmons PANTOPRAZOLE SODIUM 40 MG TBEC TAKE 1 TABLET BY ORAL ROUTE EVERY MORNING 10/07 pantoprazole (PROTONIX) 40 mg delayed-release tablet 41823857614 Cole Simmons multivitamin (DAILY MULTI-VITAMIN) tablet Take 1 tablet by mouth once daily. 07/06 multivitamin (DAILY MULTI-VITAMIN) tablet Cole Simmons mitoMYcin 0.15 mg/mL ophth. soln. 0.5 mL syringe(ZEN AMB MIX Use as directed for procedure. Keep frozen. Exp: . 02/10 mitoMYcin 0.15 mg/mL ophth. soln. 0.5 mL syringe(ZEN AMB MIX Cole Simmons MELATONIN 1 MG TABS Take 1 tablet by mouth at bedtime. 02/10 melatonin 1 mg 61428092716 Cole Simmons medication order composer Probiotic Daily-unknown dosage 07/06 medication order composer Cole Simmons LORAZEPAM 1 MG TABS Take 1 tablet by mouth once daily if needed. 02/10 LORazepam (ATIVAN) 1 mg tablet 84025227858 Cole Simmons FOLIC ACID 800 MCG TABS Take 1 tablet by mouth once daily. 07/06 folic acid 800 mcg tablet 36335417016 Cole Simmons FLECAINIDE ACETATE 50 MG TABS Take 1 tablet by mouth every 12 hours. 02/10 flecainide (TAMBOCOR) 50 mg tablet 88995790638 Cole Simmons ESTRACE 0.1 MG/GM CREA APPLY 0.5 GRAMS VAGINALLY NIGHTLY FOR 2 WEEKS THEN APPLY TWICE WEEKLY 10/07 ESTRACE 0.01 % (0.1 mg/gram) vaginal cream 12536531552 Cole Simmons ECONAZOLE NITRATE 1 % CREA Apply topically to affected area(s) once daily. 10/07 econazole nitrate cream (SPECTAZOLE 1%) 1 % cream 36141902445 Cole Simmons Docosahexanoic Acid-Eicosapent (FISH OIL) 120-180 mg cap Take by mouth. 02/10 Docosahexanoic Acid-Eicosapent (FISH OIL) 120-180 mg cap Cole Simmons diphenhydrAMINE- acetaminophen 25-500 mg (TYLENOL PM) 25-500 Take 1 tablet by mouth at bedtime if needed. Max acetaminophen dose: 4000mg in 24 hrs. 07/06 diphenhydrAMINE- acetaminophen 25-500 mg (TYLENOL PM) 25-500 Cole Simmons DICYCLOMINE HCL 20 MG TABS Take 1 tablet by mouth 4 times daily before meals and at bedtime. 10/07 dicyclomine (BENTYL) 20 mg tablet 18572051809 Cole Simmons CLOBETASOL PROPIONATE 0.05 % OINT null 10/07 clobetasol 0.05% (TEMOVATE 0.05% OINTMENT) 0.05 % ointment 31494309017 Cole Simmons calcium 600 mg capsule Take 3 capsules by mouth once daily. 07/06 calcium 600 mg capsule Cole Simmons ASPIRIN 81 MG TBEC Take 2 tablets by mouth once daily with a meal. 01/06 aspirin enteric coated 81 mg tablet 31368130716 Cole Simmons ACETAMINOPHEN 325 MG TABS Take 1-2 tablets by mouth every 4 hours if needed. Max acetaminophen dose: 4000mg in 24 hrs. 07/06 acetaminophen (TYLENOL) 325 mg tablet 03131938333 Cole Simmons Medications Administered No information available. Allergies, Adverse Reactions, Alerts Allergy Name Reaction Description Start Date Severity Statu s Provider SULFA (SULFONAMIDE ANTIBIOTICS) *Unknown Mild Active Cole Simmons AMOXICILLIN *Unknown Mild Active Cole Anderson apolinar Results Date Name Value Unit Range Flag Description Lab Report: 09/23/19 - 03/22/2 0 SGPT (ALT) normal U/L Alanine aminotransferase [Enzymatic activity/volume] in Serum or Plasma Office Visit: RECURRENT OCCI PITAL CANTU 05/06/20 09:12- 05/06/20 09:12 REFERR... SMOK STATUS never smoker Toba tobacco sizer smoking status Internal Other: Verbal Autho rization/Emergency Contact - OBS VERBAL_EMER DONE Verbal au thorization and emergency contact Lab Report: SED RATE BY AZEB FIED WESTERGREN ESR 14 mm/h < OR = 30 N Erythrocyte sedimentation rate by Westergren method Internal Other: Authorizatio n - OBS EFRAINGE-unk Yes GE use only - for Link[employer] import when terms are not otherwise specified [email or web address] Yes Authoriza tion: Release of Information - Authorize [facility] - Payment and Healthcare Operations ROIAUTHOTHER Yes Authoriz ation: Release of Information - Authorize Others/Insurance - Payment and Healthcare Operations HIECONSENT Yes Consent To Release information to the Health Information Exchange (HIE) [email or web address] Yes Authorizat ion: Authorization for [facility] to leave messages, voicemail, send text messages, send emails AUTHRELHCARE Yes Authoriz ation: Release/Retrieval of Information to/from Healthcare Facilities, Pharmacy Benefit Payers and Providers AUTHPRIVPRAC Yes Authoriz ation: Notice of privacy practices AUTHBENEFIT Yes Authoriza tion: Assignment of Benefits and Payment Agreement Office Visit: Office Visit 4 MONTH FOLLOW UP fax MEDS REVIEW Done Documenta tion of current medications (procedure) Plan of Care Type Date Detail Appointment 09:00 AM Verena morales DNP,RELATIONSHIP MANAGEMENT LEAD,CAR SUPERVISOR, [address] [address], [address], [address], Appointment 09:20 [place], [address] [address], [facility], [place], [address], Pending order Follow up Pending order Follow up Pending order Trigger Point In jections Pending order Trigger Point In jections Pending order Patient Instruct ions Pending order Follow up ANTONIO Pending order Trigger Point In jections Pending order Trigger Point In jections Pending order Trigger Point In jections Pending order Trigger Point In jections Pending order Patient Instruct ions Pending order Follow up with N eurologist or ANTONIO Pending order Follow up with N eurologist or ANTONIO Pending order Trigger Point In jections Pending order Trigger Point In jections Pending order Trigger Point In jections Pending order Trigger Point In jections Pending order Patient Instruct ions Pending order Follow up ANTONIO in clinic or telemedicine Pending order Follow up in cli jeff Pending order Trigger Point In jections Pending order Trigger Point In jections Pending order Follow up ANTONIO in clinic Pending order Physical Therapy Pending order Occipital Nerve Block and Trigger Point Injections Pending order Occipital Nerve Block and Trigger Point Injections Pending Order exclud ed from report: Pending order Occipital Nerve Block and Trigger Point Injections Pending order Trigger Point In jections Pending order Follow up ANTONIO Pending order Occipital Nerve Block and Trigger Point Injections Pending order Instructions for Staff Pending order Follow up ANTONIO Pending order Trigger Point In jections Pending order Trigger Point In jections Pending order MRI-Brain W/WO Pending order Other Radiology Pending order Instructions for Staff Pending order Follow up ANTONIO Pending order EMG left upper e xt Pending order Patient Instruct ions Pending order Follow up ANTONIO af ter testing Pending order MRI-Cervical W/O Pending order ESR (Sedimentati on Rate) Procedures Code Procedure Name Date Entry Date ORDERS [place] [address] [place] [address] Trigger Point Injections 2 ORDERS Patient Instructions CPT-09891 Trigger point inj (3+ musc) CPT-J1100 Dexamethasone -- 10 mg 07/07 CPT-11531 Trigger point inj (3+ musc) CPT-J1100 Dexamethasone -- 10 mg 03/04 [address] [place] [address] Trigger Point Injections 2 [id number] Documentation of current medicatio ns CPT-96538 Trigger point inj (3+ musc) CPT-J1100 Dexamethasone -- 10 mg 10/07 ORDERS Trigger Point Injections 09/23/21 CPT-75349 Trigger point inj (3+ musc) CPT-J1100 Dexamethasone -- 10 mg 07/16 ORDERS Trigger Point Injections 202 09/01/29 [id number] Documentation of current medicatio ns ORDERS Patient Instructions ORDERS Follow up in clinic ORDERS Trigger Point Injections 202 08/30/06 CPT-85529 Trigger point inj (3+ musc) CPT-J1100 Dexamethasone -- 10 mg 04/23 CPT-85246 Trigger point inj (3+ musc) CPT-J1100 Dexamethasone - 5 mg ORDERS Trigger Point Injections 202 08/27/14 CPT-J1100 Dexamethasone -- 10 mg 11/06 CPT-99889 Trigger point inj (3+ musc) ORDERS Trigger Point Injections 202 08/23/29 CPT-00649 Trigger point inj (3+ musc) CPT-J1100 Dexamethasone - 5 mg ORDERS Trigger Point Injections 202 08/05/06 [id number] Documentation of current medicatio ns ORDERS Patient Instructions ORDERS Follow up ANTONIO in clinic or telemedicine 2 CPT-54618 Trigger point inj (3+ musc) CPT-J1100 Dexamethasone - 5 mg ORDERS Trigger Point Injections 202 08/02/15 CPT-91691 Trigger point inj (3+ musc) CPT-J1100 Dexamethasone -- 10 mg 02/07 ORDERS Follow up ANTONIO in clinic 2021 ORDERS Trigger Point Injections 202 07/30/08 CPT-17876 Trigger point inj (3+ musc) CPT-J1100 Dexamethasone -- 10 mg 10/31 ORDERS Occipital Nerve Bloc k and Trigger Point Injections ORDERS Physical Therapy CPT-31831 Trigger point inj (3+ musc) CPT-J1100 Dexamethasone -- 10 mg 08/08 ORDERS Trigger Point Injections 07/05/10 ORDERS Occipital Nerve Bloc k and Trigger Point Injections ORDERS Occipital Nerve Bloc k and Trigger Point Injections ORDERS Follow up ANTONIO CPT-53929 Trigger point inj (3+ musc) CPT-J1100 Dexamethasone -- 10 mg 05/05 ORDERS Trigger Point Injections 202 06/29/26 ORDERS Follow up ANTONIO [id number] Documentation of current medicatio ns ORDERS Instructions for Staff 02/10 CPT-16689 Trigger point inj (3+ musc) CPT-62247 Occipital nerve bloc k (Greater ONB) unilateral CPT-J1100 Dexamethasone -- 10 mg 02/10 ORDERS Trigger Point Injections 202 06/27/28 CPT-12144 Trigger point inj (3+ musc) CPT-J1100 Dexamethasone - 5 mg [id number] Documentation of current medicatio ns CPT-L7988R ProHance Gadolinium- based MR Contrast - 15 ml vial CPT-25258 MRI Brain W/WO CPT-95436 Nerve Conduction 5-6 studies CPT-75668 EMG with NCS (5+ muscles) - 1 limb 2/05 CPT-L8327Q ProHance Gadolinium- based MR Contrast - 15 ml vial [id number] MRI-Brain W/WO ORDERS Patient Instructions ORDERS Instructions for Staff 07/13 SCT-[id number] Documentation of current medicatio ns ORDERS EMG left upper ext 9 ORDERS Follow up ANTONIO [id number] Other Radiology ORDERS Follow up ANTONIO after testing CPT-95943 MRI Cervical W/O [id number] MRI-Cervical W/O ORDERS ESR (Sedimentation Rate) 202 [id number] Documentation of current medicatio ns LOINC 06232-9 Fall risk assessment 07/06 Vital Signs Date Name Value Unit Description Height 69 [in_us] height E&M Heart Rate 50 /min pulse rate BP Diastolic 53 mm[Hg] blood pressu re, diastolic BP Systolic 105 mm[Hg] blood pressur e, systolic BMI (Body Mass Index) 19.56 kg/m2 Bod y Mass Index (Ratio) Weight Measured 60.00 kg weight in kilograms E&M Weight Measured 132 [lb_av] weight E& M Weight Measured 132 [lb_av] weight E& M Immunizations No information available. Advance Directives No information available.
--- OUTSIDE RECORDS SUMMARY | 2024-09-24 09:08 | XMS_ITS | Clinical Summary ---
Author Organization [facility] Address [address] [place] [address] Care Team Providers Care Financial Aid Director Name Role Phone Unavailable Primary Care Provider Unavailabl e Source Comments Patient records contain information from all sites at [facility]. For routine questions regarding patient records, call [phone] during business hours, M-F 8:00 AM - 5:00 PM Central Time. Record requests for emergency care only can be directed to [phone] at any time.[facility] Allergies Active Allergy Reactions Criticality Noted Date Comments Amoxicillin GI intolerance 09/12/2012 GI distress Sulfa (Sulfonamide Antibiotics) Hives (Reselect Reaction) 01/04/2009 Medications metoprolol succinate (TOPROL-XL) 12.5 mg 24 hr tablet Take 12.5 mg by mouth. 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 CHADS 2 score remains 0 -09/12/2012 ECG Sinus bradycardia with right axis QRS 92 ms has been on Flecainide for about 20 years Colitis Ulcerative 02/08/2009 Overview (11/14/2016): ULCERATIVE COLITIS, UNSPECIFIED Immunizations Immunization Administration Dates Next Due H1N1 All Forms 07/08/2009 Influenza, Unspecified 03/20/2012,2010,06/07/2010,2008,04/07/2008 PPSV23 05/12/2009 SARS-COV-2 (COVID-19) - PFIZ ER (Discontinued)(12 years or older) 03/22/2021 Tdap 01/19/2006 Family History Medical History Relation Name Comments Coronary artery disease Brother Heart attack Brother Cataracts Father Hearing loss Father Hyperlipidemia Father Hypertension Father Sarcoma Father ALS Mother Hyperlipidemia Mother Hypertension Mother Hyperlipidemia Son Obesity Son Sleep apnea Son Relation Name Status Comments Brother Father Mother Son Social History Tobacco Use Types Packs/Day Years Used Date Smoking Tobacco: Never Nutrition Answer Date Recorded Nutrition: EVOO Fat Source Unknown 08/25 Nutrition: Servings of Fruits/Vegetables per Day Not on file 08/25/2020 Dental Answer Date Recorded Dental: Regular Dentist Unknown 08/26/19 21 Comments Unknown Sex and Gender Information Value Date Recorded Sex Assigned at Not on file Legal Sex Female 3:07 AM PIECE WORK INSPECTOR Gender Identity Female 02/08/2021 6:57 AM CDT Sexual Orientation Straight 02/08/2021 6: 57 AM CDT Last Filed Vital Signs Vital Sign Reading Time Taken Comments Blood Pressure 118/58 11/26/2023 1:56 PM CDT Pulse 60 11/26/2023 1:56 PM CDT Temperature - - Respiratory Rate - - Oxygen Saturation - - Inhaled Oxygen Concentration - - Weight 60.8 kg (134 lb 0.6 oz) 11/26/2023 1:56 P M CDT Height 177.8 cm (5' 10) 11/26/2023 1:56 PM CDT Body Mass Index 19.23 11/26/2023 1:56 PM CDT Plan of Treatment Health Maintenance Due Date Last Done Comments Bone Density Scan (Osteoporosis Screen) 1951 CT Colonography 1950 Cologuard 1950 Fasting Glucose for Diabetes Screening 1950 Hepatitis C Screening 1950 Mammogram 03/20/2013 03/20/2012, 02/24, 03/15/2010, Additional history exists Lipid (Cholesterol) Screening 08/05/2013 08/05/2012, 01/02/2012, 07/20/2011 Colonoscopy 04/11/2015 04/11/2010 Colorectal Cancer Surveillance 04/11/2015 COVID-19 Vaccine ( season) 2024 07/24/2023, 05/11/2022, 11/01/2021, Additional history exists Influenza Vaccine (#1) 2024 , 04/19/2022, 04/18/2022, Additional history exists Depression Screening (Annual PHQ-2) 06/25/2024 Fall Risk Screen (Annual) 06/25/2024 DTaP,Tdap,and Td Vaccines (3 - Td or Tdap) 09/09/2025 09/10/2015, 01/19/2006 Zoster Vaccines Completed 05/30/2018, 03/25/2018 Pneumococcal vaccine (50+ years) Completed 12/03/2018, 03/06/2016, 05/12/2009 RSV vaccine - (32-36 weeks) or 60+ years Completed 07/24/2023 IPV Vaccines Aged Out No longer eligi ble based on patient's age to complete this topic Procedures Procedure Name Priority Date/Time Associated Diagnosis Comments LIPID PANEL, S Routine 08/05/2012 8:05 AM PIECE WORK INSPECTOR BI BREAST SCREENING BILATERAL Routine 03/20/2012 2:53 PM CDT from Last 3 Months or Most Recently Relevant to Health Maintenance Results * (ABNORMAL) Lipid Panel (08/05/2012 8:05 AM PIECE WORK INSPECTOR) Cholesterol, Total 204(H) 120 - 200 MGDL POWERCHART HX HDL 102 >=40 MGDL POWERCHART Triglycerides 126 35 - 185 MGDL POWERCHART Calculated LDL 77 60 - 130 MGDL POWERCHART Total Cholesterol/HDL Ratio 2.0 0.0 - 4.5 POWERCHART HXLDL/HDL 1 POWERCHART Blood 08/05/2012 8:05 AM PIECE WORK INSPECTOR us Ryan Edward Jr., M.D. LAB BLOOD ADD-ON Fin al Result POWERCHART * BI Breast Screening Bilateral (03/20/2012 2:53 PM CDT) Anatomical Region Laterality Modality Breast Bilateral Mammography 03/20/2012 2:53 PM CDT Addenda Addendum by Pee Pierre M.D. on 03/20/2012 2:53 PM CDT RAD^^^MA MA MAMMO SCREENING W CADD 03/20/2012 14:53:00 Impressions 03/21/2012 8:18 AM CDT Stable benign findings. Heterogeneously dense breast tissue proportionately increases importance of clinical exam. Recommend annual screening mammography. BREAST MAMMOGRAPHY - GENERAL OBSERVATIONS: The false negative rate for mammography is 15-20%. It cannot be used, therefore, to replace the regular physical examination. A normal or noncontributory mammogram report also should not deter the aggressive further workup of any suspected palpable masses. ACR Code 2. Narrative 03/21/2012 8:18 AM CDT Comparison: 03/20/2011, 03/15/2010. FINDINGS: Breast tissue is heterogeneously dense, which limits sensitivity of mammography. No suspicious mass, clustered microcalcification, architectural distortion. Benign-appearing calcifications are present bilaterally. Computer aided detection utilized during interpretation of this exam. Procedure Note Karthik Holm M.D. / ProviderPee M.D. - 11/15/2016 Comparison: 03/20/2011, 03/15/2010. FINDINGS: Breast tissue is heterogeneously dense, which limits sensitivity of mammography. No suspicious mass, clustered microcalcification, architectural distortion. Benign-appearing calcifications are present bilaterally. Computer aided detection utilized during interpretation of this exam. IMPRESSION: Stable benign findings. Heterogeneously dense breast tissue proportionately increases importance of clinical exam. Recommend annual screening mammography. BREAST MAMMOGRAPHY - GENERAL OBSERVATIONS: The false negative rate for mammography is 15-20%. It cannot be used, therefore, to replace the regular physical examination. A normal or noncontributory mammogram report also should not deter the aggressive further workup of any suspected palpable masses. ACR Code 2. us Historical Provider IMG BI PROCEDURES Edited Res ult - Final from Last 3 Months or Most Recently Relevant to Health Maintenance Insurance [facility]
--- OUTSIDE RECORDS SUMMARY | 2024-09-24 09:08 | XMS_ITS | Clinical Summary ---
Author Organization [facility] Address [address] [place] [address] Care Team Providers Care Dock Boss Name Role Phone Mya Johnson PA-C Primary Care Provider [phone] Allergies Active Allergy Reactions Criticality Noted Date Comments Amoxicillin *Unknown 09/12/2012 Sulfa (Sulfonamide Antibiotics) *Unknown 08/24 Medications calcium 600 mg capsule Take 3 capsules by mouth once daily. 0 09/13/19 13 Active folic acid 800 mcg tablet Take 1 tablet by mouth once daily. 0 09/13/19 13 Active zinc 50 mg tablet Take 1 tablet by mouth once daily. 0 09/13/19 13 Active multivitamin (DAILY MULTI-VITAMIN) tablet Take 1 tablet by mouth once daily. 0 09/13/19 13 Active diphenhydrAMINE- acetaminophen 25-500 mg (TYLENOL PM) 25-500 mg tablet Take 1 tablet by mouth at bedtime if needed. Max acetaminophen dose: 4000mg in 24 hrs. 0 09/13/19 13 Active acetaminophen (TYLENOL) 325 mg tablet Take 1-2 tablets by mouth every 4 hours if needed. Max acetaminophen dose: 4000mg in 24 hrs. 0 09/16/19 14 Active polyethylene glycol (MIRALAX; GLYCOLAX) 17 g powder for solution Take 17 g by mouth. 0 09/02/19 15 Active econazole nitrate cream (SPECTAZOLE 1%) 1 % cream Apply topically to affected area(s) once daily. 1 Tube 0 09/02/19 15 Active clobetasol 0.05% (TEMOVATE 0.05% OINTMENT) 0.05 % ointment 06/06/20 17 Active ESTRACE 0.01 % (0.1 mg/gram) vaginal cream APPLY 0.5 GRAMS VAGINALLY NIGHTLY FOR 2 WEEKS THEN APPLY TWICE WEEKLY 3 03/01/20 17 Active LORazepam (ATIVAN) 1 mg tablet Take 1 tablet by mouth once daily if needed. 0 06/07/20 17 Active pantoprazole (PROTONIX) 40 mg delayed-release tablet TAKE 1 TABLET BY ORAL ROUTE EVERY MORNING 11 05/06/20 17 Active medication order composer Probiotic Daily-unknown dosage 0 06/07/20 17 Active dicyclomine (BENTYL) 20 mg tablet Take 1 tablet by mouth 4 times daily before meals and at bedtime. 0 09/23/19 20 Active melatonin 1 mg Take 1 tablet by mouth at bedtime. 0 09/23/19 20 Active Docosahexanoic Acid-Eicosapent (FISH OIL) 120-180 mg cap Take by mouth. 0 09/23/19 20 Active sertraline (ZOLOFT) 25 mg tablet Take 1 tablet by mouth once daily. 0 09/23/19 20 Active mitoMYcin 0.15 mg/mL ophth. soln. 0.5 mL syringe(ZEN AMB MIXTURE) Use as directed for procedure. Keep frozen. Exp: . 0.5 mL 02/10/2020 3:36 PM CDT 02/06/20 20 Active flecainide (TAMBOCOR) 50 mg tabletIndication s:PAF (paroxysmal atrial fibrillation) (HC) Take 1 Tablet (50 mg) by mouth every 12 hours. Further refills to [place] department assistant if she continues on this. 60 Tablet 03/10/20 21 Active metoprolol succinate (Toprol XL) 25 mg Sustained-Releas e tabletIndication s:Paroxysmal atrial fibrillation (HC) Take 0.5 Tablets (12.5 mg) by mouth once daily. 45 Tablet 3 01/17/20 24 Active apixaban (Eliquis) 5 mg tabletIndication s:Paroxysmal atrial fibrillation (HC) Take 1 Tablet (5 mg) by mouth two times daily. 180 Tablet 2 02/13/20 24 Active Active Problems Problem Noted Date Diagnosed Date Sinus bradycardia 08/31/2023 Paroxysmal atrial fibrillation 08/15/2012 Overview (09/12/2012): -09/12/2011 on Flecainide 50 mg every 12 hours. CHADS 2 score remains 0 -09/12/2012 ECG Sinus bradycardia with right axis QRS 92 ms has been on Flecainide for about 20 years Hypercholesterolemia 08/15/2012 Overview (09/05/2012): -08/05/2012 Chol 204, TG 126, HDL 102, LDL 77, ALT 17 on simvastatin Encounters Date Type Department Care Team Description 08/05/2024 9:40 AM PLANT QUALITY MANAGER Office Visit [facility] [address] [place] [address] Irineo Torres MD Procedure (Right L5-S1 TFESI) 06/26/2024 Transcribe Orders [facility] [address] [place] [address] Irineo Torres MD from Last 3 Months Social History Tobacco Use Types Packs/Day Years Used Date Smoking Tobacco: Never Smokeless Tobacco: Never Alcohol Use Standard Drinks/Week Comments No 0 (1 standard drink = 0.6 oz pur e alcohol) Financial Resource Strain Answer Date R ecorded Difficulty of Paying Living Expenses Not on file 06/25/2021 Difficulty of Paying Living Expenses Not on file 06/25/2021 Comments Unknown Sex and Gender Information Value Date Recorded Sex Assigned at Not on file Legal Sex Female 6:23 AM PLANT QUALITY MANAGER Gender Identity Not on file Sexual Orientation Not on file Obstetrics History Last Filed Vital Signs Vital Sign Reading Time Taken Comments Blood Pressure 120/70 08/12/2018 1:17 PM PLANT QUALITY MANAGER Pulse 63 08/12/2018 1:17 PM PLANT QUALITY MANAGER Temperature - - Respiratory Rate 18 09/12/2012 8:24 AM CDT Oxygen Saturation 99% 08/12/2018 1:17 PM PLANT QUALITY MANAGER Inhaled Oxygen Concentration - - Weight 59.9 kg (132 lb) 08/12/2018 1:17 PM PLANT QUALITY MANAGER Height 177.8 cm (5' 10) 08/12/2018 1:17 PM PLANT QUALITY MANAGER Body Mass Index 18.94 08/12/2018 1:17 PM PLANT QUALITY MANAGER Plan of Treatment Health Maintenance Due Date Last Done Comments Tdap 09/07/1962 Depression screening for age 12+ 1963 Hepatitis C screening for ag e 18-79 09/07/1969 Pneumococcal series for age 50+ (1 of 2 - PCV) 09/07/1970 Zoster (shingles) series for age 50+ (1 of 2) 09/07/1970 Tetanus booster 1971 Colonoscopy through age 75 09/07/1996 Lipids for age 45-75 09/07/1996 Mammogram for age 45-75 09/07/1996 RSV vaccine for adults or (1 - Risk 60-74 years 1-dose series) 2011 DEXA/DXA scan for age 65+ 09/07/2016 Medicare Wellness for age 65+ 09/07/2016 BMI (ht and wt on same day) for age 18+ 08/12/2019 08/12/2018, 06/07/2017 Influenza Vaccine (#1) 2024 COVID-19 vaccine series (8 - Pfizer risk 2023- season) 2024 05/14/2024, 07/24/2023, 05/11/2022, Additional history exists Procedures Procedure Name Priority Date/Time Associated Diagnosis Comments AMB EPIDURAL STEROID INJECTION Routine 08/05/2024 12:00 AM PLANT QUALITY MANAGER Other spondylosis with radiculopathy, lumbar region from Last 3 Months Results * AMB EPIDURAL STEROID INJECTION (08/05/2024 12:00 AM PLANT QUALITY MANAGER) Irineo Torres MD NEUROLOGY ORD Final Resu lt from Last 3 Months Insurance MEDICARE PART B HB ONLY MEDICARE PART A HB ONLY [employer] MEDICARE ADVANTAGE Care Teams Dock Boss Relationship Specialty Start Date End Date Mya Johnson PA-C [address] [place] [address] PCP - General Emergency Medicine 09/23/19
--- OUTSIDE RECORDS SUMMARY | 2024-09-24 09:09 | XMS_ITS ---
Author Organization [facility] Address [address] [place] [id number] Care Team Providers Care Coremaking Machine Operator Name Role Phone Unavailable Unavailable Unavailable Allergies, Adverse Reactions, Alerts This patient has no known allergies or adverse reactions. Problems This patient has no known problems.
[2024-09-24 09:22] VITALS: BP 144/78; PULSE 82; RESP 16; TEMP 36.4; O2SAT 99; BMI 19.1
--- NOTE | 2024-09-24 09:27 | ED_ITS ---
HPI - General Adult General Chief complaint: Diarrhea Stated complaint: Syncopal 0600 Time Seen by Provider: 09/24/24 09:10 History of Present Illness HPI narrative: 71-YEAR-OLD FEMALE THAT GOT UP TO GO TO THE BATHROOM TODAY HAD URGENCY AND INTESTINAL PAIN ABDOMINAL PAIN, she sat down to go the bathroom and felt dizzy, she had her come in and he later on the ground she briefly passed out for about 20 seconds. She had no seizure activity. She woke and had no postictal phase. She has had history of ulcerative colitis, but does not feel that is related. She had intense abdominal cramping. Feels better now just feels a little tired. She had no chest pain headache breathing problem. She feels better at this point as mention. She has had ulcerative colitis and is on medicine for that, she has had AFib but that is been remote. No chest pain, no breathing, no abdominal pain now, no dysuria or frequency. No headache or visual problem. Related Data Home Medications ?Medication ?Instructions ?Recorded ?Confirmed Lactobacillus PO 03/09/22 02/21/24 Melatonin PO 03/09/22 02/21/24 betamethasone dipropionate 0.05 % 1 topical BID 03/09/22 02/21/24 topical ointment calcium 315 mg (as 1 tab PO BID 03/09/22 02/21/24 citrate)-vitamin D3 5 mcg (200 unit) tablet flecainide 50 mg tablet mg PO BID 03/09/22 02/21/24 folic acid 800 mcg tablet 800 mcg PO DAILY 03/09/22 02/21/24 mesalamine 1.2 gram tablet,delayed g PO BID 03/09/22 02/21/24 release omega-3 fatty acids 1,000 mg 1,000 mg PO QDAY 03/09/22 02/21/24 capsule pantoprazole 20 mg tablet,delayed mg PO DAILY 03/09/22 02/21/24 release polyethylene glycol 3350 17 g PO BID 03/09/22 02/21/24 gram/dose oral powder apixaban 5 mg tablet (Eliquis) 5 mg PO BID 09/01/22 02/21/24 gabapentin 100 mg capsule 200 mg PO TID 09/01/22 02/21/24 mupirocin 2 % topical ointment 1 applic topical .prn PRN 09/01/22 02/21/24 patiromer calcium sorbitex 16.8 16.8 g PO Q OTHER DAY 11/27/22 02/21/24 gram oral powder packet clobetasol 0.05 % topical cream 1 applic topical BID 03/14/23 02/21/24 triamcinolone acetonide 0.1 % 1 applic topical BID-TID 03/14/23 02/21/24 topical cream dicyclomine 20 mg tablet 10 mg PO ONCE 04/19/23 02/21/24 metoprolol succinate 25 mg 12.5 mg PO QDAY 04/19/23 02/21/24 tablet,extended release 24 hr Previous Rx's ?Medication ?Instructions ?Recorded atorvastatin 10 mg tablet 10 mg PO .Bedtime #90 tabs 02/21/24 sertraline 25 mg tablet 25 mg PO DAILY #90 tabs 02/21/24 sumatriptan succinate 100 mg tablet 100 mg PO ONCE #9 tabs 06/13/24 Allergies Allergy/AdvReac Type Severity Reaction Status Date / Time amoxicillin Allergy Unknown Gastrointestinal Verified 09/24/24 09:21 Upset Sulfa (Sulfonamide Allergy Unknown Hives Verified 09/24/24 09:21 Antibiotics) Review of Systems Status of ROS: Reports: 6 or more systems reviewed and unremarkable except as noted in History and below [facility] Medical History History of squamous cell carcinoma of skin ?Z85.828 - Personal history of other malignant neoplasm of skin (ICD-10) Osteoporosis ?M81.0 - Age-related osteoporosis without current pathological fracture (ICD- 10) Herpes zoster ?B02.9 - Zoster without complications (ICD-10) Surgical History Cataract ?H26.9 - Unspecified cataract (ICD-10) History of colonoscopy ?Z98.890 - Other specified postprocedural states (ICD-10) Family History Paternal Grandmother Breast cancer Paternal Grandfather Coronary artery disease Father Hearing loss Hyperchloremia High blood pressure Colon polyps Mother ALS (amyotrophic lateral sclerosis) Hyperchloremia High blood pressure Brother Colon polyps Uncle Pancreatic cancer Social History Smoking Status: Never smoker Do you use any of these nicotine containing products: None Second hand tobacco smoke exposure: No How often do you have a drink containing alcohol: never AUDIT-C Alcohol total score: 0 Non-prescribed substance use: denies use Exam Narrative: Exam Narrative: Objective: In general patient is no apparent distress alert orient x3 Alert orient x3 Pulses regular Normal sinus rhythm on telemetry HEENT shows slight drying with some mucus membranes neck is supple chest clear heart rhythm regular with 2/6 systolic murmur Abdomen benign soft nontender no masses or peritoneal signs Extremities are no edema neurologic nonfocal good peripheral perfusion noted. Const: Vital Signs, click to edit/add: Vital Signs - 24 hr 09/24/24 09:22 09/24/24 09:45 09/24/24 10:02 Temperature 97.5 F L Pulse Rate 71 Pulse Rate [Pulse Oximeter] 82 Respiratory Rate 16 17 Blood Pressure 117/70 Blood Pressure [Ri ght Upper Arm] 144/78 H Pulse Oximetry 99 96 99 Oxygen Delivery Me thod Room Air 09/24/24 10:32 09/24/24 11:02 Temperature Pulse Rate 66 61 Pulse Rate [Pulse Oximeter] Respiratory Rate 14 20 Blood Pressure 128/71 117/65 Blood Pressure [Ri ght Upper Arm] Pulse Oximetry 98 98 Oxygen Delivery Me thod Course Vital Signs Vital signs: Initial Vital Signs Temperature 97.5 F L 09/24/24 09:22 Temperature Source Temporal Artery Scan 09/24/24 09:22 Pulse Rate 82 09/24/24 09:22 Respiratory Rate 16 09/24/24 09:22 Blood Pressure 144/78 H 09/24/24 09:22 Blood Pressure Mean 100 09/24/24 09:22 Pulse Oximetry 99 09/24/24 09:22 Oxygen Delivery Method Room Air 09/24/24 09:22 Vital Signs Temperature 97.5 F L 09/24/24 09:22 Pulse Rate 82 09/24/24 09:22 Respiratory Rate 16 09/24/24 09:22 Blood Pressure 144/78 H 09/24/24 09:22 Pulse Oximetry 99 09/24/24 09:22 Oxygen Delivery Method Room Air 09/24/24 09:22 Temperature 97.5 F L 09/24/24 09:22 Pulse Rate 61 09/24/24 11:02 Respiratory Rate 20 09/24/24 11:02 Blood Pressure 117/65 09/24/24 11:02 Pulse Oximetry 98 09/24/24 11:02 Oxygen Delivery Method Room Air 09/24/24 09:22 Medications Administered Medications: Discontinued Medications Generic Name Dose Route Start Last Admin Trade Name Sho PRN Reason Stop Dose Admin Sodium Chloride 1,000 mls @ 6,000 mls/hr 09/24/24 09:30 09/24/24 10:50 0.9 % Sodium Chloride 1000 Ml IV 09/24/24 09:39 Infused .Q10M AVA Infusion Medical Decision Making MDM Narrative Medical decision making narrative: [age] year white female with history of intense abdominal cramping subsequent bowel movement, with a brief syncopal spell, likely vasovagal syndrome. Given her abdominal pain and then the subsequent syncopal episode this is likely related. She does not have any headache visual problem. Has no stroke-like symptoms. I think checking labs given her hydration would be appropriate at this time she and her were comfortable plan will put on telemetry as well get an EKG and a troponin. Disposition pending findings above. Make sure there is no heart issue, make sure should have flare of colitis although she does not have any symptoms of that now and this is not mimicking her prior colitis flares which were mucus passing and bloody stool. 10:51 a.m. addendum. Patient feels well still. Her EKG by my read shows normal sinus rhythm incomplete right bundle-branch block no obvious ST T wave changes. Patient's troponin is 0. Laboratory studies look reassuring. She got some IV fluid. She feels better. I think we can allow go home rest light activity fluids continue home medications. Return if problems or concerns. She and are comfortable plan. Symptoms are very consistent with intestinal pain discomfort that is now improved after a bowel movement and brief syncopal spell that this is a vasovagal type spell. Recheck with regular doctor within the next 2-3 days, return to ED sooner problems or concerns. Discussed further imaging such as CT scanning and they felt that this was an adequate workup at this time with mutual decision making. I would agree. Lab Data Labs: Lab Results 09/24/24 Range/Units 09:45 WBC 9.79 (4.50-11.00) K/uL RBC 4.15 (4.00-5.20) m/uL Hgb 12.6 (12.0-16.0) gm/dL Hct 38.9 (33.0-51.0) % MCV 94 (80-100) fL MCH 30 (26-34) pg MCHC 32 (32-36) gm/dL RDW Coeff of Estiven 13.6 (11.5-15.5) % Plt Count 196 (140-440) K/uL Neut % (Auto) 87.1 H (42.0-72.0) % Lymph % (Auto) 5.4 L (20-44) % [place] % (Auto) 6.4 (0.0-11.0) % Eos % (Auto) 0.8 (0.0-7.0) % Baso % (Auto) 0.2 (0.0-3.0) % Neut # (Auto) 8.50 H (1.7-7.0) K/uL Lymph # (Auto) 0.50 L (0.90-2.90) K/uL [place] # (Auto) 0.60 (0.00-0.90) K/UL Eos # (Auto) 0.08 (0.00-0.50) K/uL Baso # (Auto) 0.02 (0.00-0.30) K/uL Abs Immat Gran (auto) 0.01 (0.00-0.30) K/uL Imm/Tot Granulo (auto) 0.1 % Sodium 139 (135-149) mmol/L Potassium 4.5 (3.6-5.1) mmol/L Chloride 103 (96-114) mmol/L Carbon Dioxide 30 (20-32) mmol/L Anion Gap 6 L (7-15) mEq/L BUN 16 (7-30) mg/dL Creatinine 0.6 (0.5-1.5) mg/dL Estimated Creat Clear 47.72 Estimated GFR 95 ml/min Glucose 159 H (60-115) mg/dL Calcium 9.2 (8.4-10.6) mg/dL Total Bilirubin 0.6 (0.1-1.5) mg/dL Direct Bilirubin 0.2 (0.0-0.5) mg/dL AST 37 H (12-35) U/L ALT 25 (4-35) U/L Alkaline Phosphatase 111 (40-150) U/L C-Reactive Protein < 0.5 L (0.5-1.0) mg/dL NT-Pro-B Natriuret Pep 23 pg/mL Total Protein 7.3 (6.0-8.3) g/dL Albumin 4.5 (3.3-5.0) g/dL POC Troponin I 0.00 L (0.01-0.04) ng/ml Discharge Plan Discharge Clinical Impression: Vasovagal syndrome Patient Disposition: Home w/ Parent or Adult Condition: Improved Additional Instructions: Rest, fluids, continue home medications, recheck with regular doctor next 2-3 days, return to ED sooner problems or concerns. Activity Level: Light activity Discharge Diet: Regular Prescriptions: No Action mesalamine 1.2 gram tablet,delayed release (DR/EC) PO BID calcium citrate-vitamin D3 315 mg-5 mcg (200 unit) tablet 1 tab PO BID folic acid 800 mcg tablet 800 mcg PO DAILY betamethasone dipropionate 0.05 % ointment 1 topical BID polyethylene glycol 3350 17 gram/dose powder PO BID flecainide 50 mg tablet PO BID pantoprazole 20 mg tablet,delayed release (DR/EC) PO DAILY omega-3 fatty acids 1,000 mg capsule 1,000 mg PO QDAY Melatonin PO Lactobacillus PO patiromer calcium sorbitex 16.8 gram powder in packet 16.8 g PO Q OTHER DAY dicyclomine 20 mg tablet 10 mg PO ONCE metoprolol succinate 25 mg tablet extended release 24 hr 12.5 mg PO QDAY Patient Comments: QOD atorvastatin 10 mg tablet 10 mg PO .Bedtime Qty: 90 3RF Rx Instructions: once daily for cholesterol sertraline 25 mg tablet 25 mg PO DAILY Qty: 90 3RF Eliquis 5 mg tablet 5 mg PO BID mupirocin 2 % ointment 1 applic topical .prn PRN gabapentin 100 mg capsule 200 mg PO TID triamcinolone acetonide 0.1 % cream 1 applic topical BID-TID clobetasol 0.05 % cream 1 applic topical BID sumatriptan succinate 100 mg tablet 100 mg PO ONCE Qty: 9 2RF Follow Up/Referrals: Lybarger,Mya J, PA-C [Primary Care Provider] - Stand Alone Forms: [employer] Info Instructions
--- OUTSIDE RECORDS SUMMARY | 2024-09-24 09:35 | XMS_ITS | Clinical Summary ---
Author Organization [facility] Address [address] [place] [address] Care Team Providers Care Chief Media Officer Name Role Phone Unavailable Primary Care Provider Unavailabl e Source Comments Patient records contain information from all sites at [facility]. For routine questions regarding patient records, call [phone] during business hours, M-F 8:00 AM - 5:00 PM Central Time. 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 Gender Identity Female 02/08/2021 6:57 AM CDT [...] LIPID PANEL, S Routine 08/05/2012 8:05 AM MENTAL HEALTH AIDE BI BREAST SCREENING BILATERAL Routine 03/20/2012 2:53 PM CDT from Last 3 Months or Most Recently Relevant to Health Maintenance Results * (ABNORMAL) Lipid Panel (08/05/2012 8:05 AM MENTAL HEALTH AIDE) Cholesterol, Total 204(H) 120 - 200 MGDL POWERCHART HX HDL 102 >=40 MGDL POWERCHART Triglycerides 126 35 - 185 MGDL POWERCHART Calculated LDL 77 60 - 130 MGDL POWERCHART Total Cholesterol/HDL Ratio 2.0 0.0 - 4.5 POWERCHART HXLDL/HDL 1 POWERCHART Blood 08/05/2012 8:05 AM MENTAL HEALTH AIDE us Ryan Edward Jr., M.D. LAB BLOOD [...] Most Recently Relevant to Health Maintenance Insurance [facility]
--- OUTSIDE RECORDS SUMMARY | 2024-09-24 09:35 | XMS_ITS | Clinical Summary ---
Author Organization [facility] Address [address] [place] [id number] Care Team Providers Care Lead Inspector Name Role Phone Mya Johnson PA-C Primary Care Provider Allergies Active Allergy Reactions Criticality Noted Date [...] mouth every 12 hours. Further refills to [place] [facility] if she continues on this. 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[employer] Gender Identity Not on file Sexual Orientation Not on file Obstetrics History Last Filed Vital Signs Vital Sign Reading Time Taken Comments Blood Pressure 120/70 08/12/2018 1:17 PM [employer] Pulse 63 08/12/2018 1:17 PM [employer]ER Temperature - - Respiratory Rate 18 09/12/2012 8:24 AM CDT Oxygen Saturation 99% 08/12/2018 1:17 PM [employer]ER Inhaled Oxygen Concentration - - Weight 59.9 kg (132 lb) 08/12/2018 1:17 PM [employer] CAR[employer]ER Height 177.8 cm (5' 10) 08/12/2018 1:17 PM [employer]ER Body Mass Index 18.94 08/12/2018 1:17 PM [employer] CAR[employer]ER Plan of Treatment Health Maintenance Due Date [...] EPIDURAL STEROID INJECTION Routine 08/05/2024 12:00 AM [employer] Other spondylosis with radiculopathy, lumbar region from Last 3 Months Results * AMB EPIDURAL STEROID INJECTION (08/05/2024 12:00 AM [employer]) Irineo Torres MD NEUROLOGY ORD Final Resu lt from Last 3 Months Insurance MEDICARE PART B HB ONLY MEDICARE PART A HB ONLY [employer]AGE Care Teams Lead Inspector Relationship Specialty Start Date End Date Mya Johnson PA-C [id number] [place] [address] PCP - General Emergency Medicine 09/23/19
--- OUTSIDE RECORDS SUMMARY | 2024-09-24 09:36 | XMS_ITS | Clinical Summary ---
Author Organization [facility] Address [address] , [address] [place] [address] Phone Care Team Providers Care Manager Er Name Role Phone [facility] Unavailable Unava ilable Conditions or Problems Problem Name Problem Code Onset Date Status Entry Date Provider Comment Standard Description Annotate Myalgia of auxiliary muscles, head and neck 45866661 (SNOMED CT) 03/04 Active 03/04 Verena Cheung DNP,MED SPEC,CN P Muscle pain Myalgia of auxiliary muscles, head and neck 34858216 (SNOMED CT) 10/07 Resolved 10/07 Willy Boggs MD Muscle pain Neck pain 40874200 (SNOMED CT) 07/06 Resolved 07/06 Willy Boggs MD Neck pain Insomnia NOS 272831582 (SNOMED CT) 03/03 Active 03/03 Willy Boggs MD Insomnia Anxiety 82570372 (SNOMED CT) 03/03 Active 03/03 Willy Boggs MD Anxiety Tension headache, episodic 565269117 (SNOMED CT) 10/07 Active 10/07 Verena Cheung DNP,MED SPEC,CN P Episodic tension-type headache Myalgia of auxiliary muscles, head and neck 22440924 (SNOMED CT) 10/07 Removed 10/07 Verena Cheung DNP,MED SPEC,CN P Muscle pain Cervicogenic headache 204205806 (SNOMED CT) 07/13 Active 07/13 Teresa Lauri Cervicogenic headache COMMON MIGRAINE, NOT INTRACTABLE G43.009 (ICD-10-CM ) 02/10 Active 02/10 Verena Cheung DNP,MED SPEC,CN P Migraine without aura, not intractable, without status migrainosus Migraine without aura, with intractable migraine, so stated, without mention of status migrainosus 233677712 (SNOMED CT) 09/20 Resolved 09/20 Verena Cheung DNP,MED SPEC,CN P Refractory migraine without aura Occipital neuralgia, left M54.81 (ICD-10-CM ) 02/10 Active 02/10 Verena Cheung DNP,MED SPEC,CN P Occipital neuralgia Migraine without aura, with intractable migraine, so stated, without mention of status migrainosus 658124791 (SNOMED CT) 09/20 Removed 09/20 Verena Cheung DNP,MED SPEC,CN P Refractory migraine without aura Cervical spasm 18169097 (SNOMED CT) 09/20 Active 09/20 Verena Cheung DNP,MED SPEC,CN P Muscle spasm of head and/or neck Cervicogenic headache 782919405 (SNOMED CT) 07/13 Inactive 07/13 Kaur Britten Elevated level of transaminase and lactic acid dehydrogenase Cervicogenic headache 294241604 (SNOMED CT) 07/13 Inactive 07/13 Verena Cheung DNP,MED SPEC,CN P Cervicogenic headache Headache 389928573 (SNOMED CT) 07/06 Resolved 07/06 Verena Cheung DNP,MED SPEC,CN P Elevated level of transaminase and lactic acid dehydrogenase Headache 786243905 (SNOMED CT) 07/06 Removed 07/06 Teresa Lauri Elevated level of transaminase and lactic acid dehydrogenase Neck pain 01388542 (SNOMED CT) 07/06 Removed 07/06 Jian Shepard MD Neck pain Headache 21660145 (SNOMED CT) 07/06 Inactive 07/06 Jian Shepard MD Headache Medications Medication Instructions Start Date Stop Date Generic Name NDC Provider GABAPENTIN 100 MG CAPS Take 100mg in the AM, 200mg in the afternoon and 200mg in the evening 03/03 gabapentin [id number] Willy Boggs MD GABAPENTIN 100 MG CAPS Take 200 mg in 8 am and 4 pm. In addition may take extra 200 mg as needed gabapentin 27509705992 Willy Boggs MD NORTRIPTYLINE HCL 10 MG CAPS 1 capsule by mouth as directed : 10 mg per night; then increase by 10 mg/night every 1 weeks until maximum 50 mg/night or until insomnia and pain controlled nortriptyline [id number] Willy Boggs MD GABAPENTIN 100 MG CAPS TAKE 1 CAPSULES BY MOUTH IN AM, 2 CAPS IN AFTERNOON, 2 CAPS AT BEDTIME TO PREVENT MIGRAINE. 09/23 gabapentin 90363759755 Willy Boggs MD GABAPENTIN 100 MG CAPS Take 100mg in the AM, 200mg in the afternoon and 200mg in the evening 03/03 gabapentin 60534978863 Willy Boggs MD ASPIRIN 81 MG TBEC Take 1 tablet by mouth once a day 08/06 aspirin [id number] Willy Boggs MD GABAPENTIN 100 MG CAPS TAKE 1 CAPSULES BY MOUTH IN AM, 2 CAPS IN AFTERNOON, 2 CAPS AT BEDTIME TO PREVENT MIGRAINE. 09/23 gabapentin 02296815679 Verena Cheung DNP,MED SPEC,SENIOR SQL DBA DICYCLOMINE HCL 20 MG TABS Take 1 tablet by mouth four times a day dicyclomine [id number] Verena Francisigel DNP,MED SPEC,SENIOR SQL DBA DICYCLOMINE HCL 10 MG CAPS dicyclomine 29362086216 Verena Francisigel DNP,MED SPEC,SENIOR SQL DBA GABAPENTIN 100 MG CAPS TAKE 2 CAPSULES BY MOUTH IN AM, 2 CAPS IN AFTERNOON, 4 CAPS AT BEDTIME TO PREVENT MIGRAINE. gabapentin 05032896790 Willy Boggs MD GABAPENTIN 100 MG CAPS TAKE 2 CAPSULES BY MOUTH IN THE MORNING, 2 CAPS IN AFTERNOON AND 2 CAPS AT BED FOR MIGRAINE PREVENT 08/14 gabapentin 17420039126 Enid Burden PA-C GABAPENTIN 100 MG CAPS TAKE 2 CAPSULES BY MOUTH IN AM, 2 CAPS IN AFTERNOON, 4 CAPS AT BEDTIME TO PREVENT MIGRAINE. 09/19 gabapentin 12385453146 Enid Mcnamara Jenise MOURA LORAZEPAM 1 MG TABS Take 1 tablet by mouth once a day as needed 08/06 lorazepam 73484540884 Willy Boggs MD mitoMYcin 0.15 mg/mL ophth. soln. 0.5 mL syringe Use as directed 08/06 ZEN AMB MIX Willy Boggs MD ELIQUIS 2.5 MG TABS apixaban 96000577106 Willy Boggs MD METOPROLOL TARTRATE 25 MG TABS metoprolol tartrate 03871399263 Willy Boggs MD patiromer calcium sorbitex unspecified unspecified patiromer calcium sorbitex Willy Boggs MD GABAPENTIN 100 MG CAPS TAKE 2 CAPSULES BY MOUTH IN THE MORNING, 2 CAPS IN AFTERNOON AND 2 CAPS AT BED FOR MIGRAINE PREVENT 08/14 gabapentin 85908603767 Verena Cheung DNP,MED SPEC,SENIOR SQL DBA aspirin 81 mg tablet,delayed release (DR/EC) Take 1 tablet by mouth once a day 08/06 aspirin 69790258496 Verena Cheung DNP,MED SPEC,SENIOR SQL DBA ATORVASTATIN CALCIUM 10 MG TABS atorvastatin 13146978550 Verena Cheung DNP,MED SPEC,SENIOR SQL DBA KP FOLIC ACID 800 MCG TABS folic acid 61645193026 Verena Cheung DNP,MED SPEC,SENIOR SQL DBA MESALAMINE 1.2 [facility] mesalamine 42130733744 Verena Cheung DNP,MED SPEC,SENIOR SQL DBA GABAPENTIN 100 MG CAPS 2 PILLS IN AM, 2 PILLS IN AFTERNOON AND 4 PILLS AT BEDTIME FOR MIGRAINE PREVENTION 08/18 gabapentin 12304564921 Verena Cheung DNP,MED SPEC,SENIOR SQL DBA GABAPENTIN 100 MG CAPS TAKE 2 CAPSULES BY MOUTH IN THE MORNING, 2 CAPS IN AFTERNOON AND 4 CAPS AT BED FOR MIGRAINE PREVENT 07/01 gabapentin 69400964033 Jian Shepard MD ESTRACE 0.1 MG/GM CREA APPLY 0.5 GRAMS VAGINALLY NIGHTLY FOR 2 WEEKS THEN APPLY TWICE WEEKLY 07/05 estradiol 23060968057 Verena Cheung DNP,MED SPEC,SENIOR SQL DBA SUMATRIPTAN SUCCINATE 100 MG TABS take 1 tab at start of severe headache, may repeat in 2 hours. max 2 tab/day, 3 day/week, 9 tab/month. sumatriptan succinate 70139797492 Verena Cheung DNP,MED SPEC,SENIOR SQL DBA aspirin 81 mg tablet,delayed release (DR/EC) Take 2 tablet by mouth once a day 02/07 aspirin 85894037820 Verena Cheung DNP,MED SPEC,SENIOR SQL DBA SERTRALINE HCL 25 MG TABS Take 1 tablet by mouth once a day 03/03 sertraline 70442437891 Verena Cheung DNP, APRN,SENIOR SQL DBA PANTOPRAZOLE SODIUM 40 MG TBEC Take 1 tablet by mouth every morning pantoprazole 83067421785 Verena Cheung DNP,MED SPEC,SENIOR SQL DBA mitoMYcin 0.15 mg/mL ophth. soln. 0.5 mL syringe Use as directed 08/06 ZEN AMB MIX Verena Cheung DNP, APRN,SENIOR SQL DBA MELATONIN 1 MG TABS Take 1 tablet by mouth every night melatonin 41082991941 Verena Cheung DNP, APRN,SENIOR SQL DBA LORAZEPAM 1 MG TABS Take 1 tablet by mouth once a day as needed 08/06 lorazepam 06493848581 Verena Cheung DNP,MED SPEC,SENIOR SQL DBA FLECAINIDE ACETATE 50 MG TABS Take 1 tablet by mouth every twelve hours flecainide 78190726344 Verena Cheung DNP,MED SPEC,SENIOR SQL DBA ESTRACE 0.1 MG/GM CREA APPLY 0.5 GRAMS VAGINALLY NIGHTLY FOR 2 WEEKS THEN APPLY TWICE WEEKLY /15 estradiol 85691883182 Verena Cheung DNP,MED SPEC,SENIOR SQL DBA Docosahexanoic Acid-Eicosapent Take by mouth FISH OIL Verena Cheung DNP,MED SPEC,SENIOR SQL DBA GABAPENTIN 100 MG CAPS 1 PILL IN AM, 1 PILL IN AFTERNOON AND 3 PILLS AT BEDTIME FOR HEADACHES 02/10 gabapentin 72014127148 Verena Cheung DNP,MED SPEC,SENIOR SQL DBA DICYCLOMINE HCL 20 MG TABS Take 1 tablet by mouth four times a day dicyclomine 73985792610 Verena Cheung DNP,MED SPEC,SENIOR SQL DBA GABAPENTIN 100 MG CAPS 2 PILLS IN AM, 2 PILLS IN AFTERNOON AND 4 PILLS AT BEDTIME FOR MIGRAINE PREVENTION 10/07 gabapentin 89112809265 Verena Cheung DNP,MED SPEC,SENIOR SQL DBA SUMATRIPTAN SUCCINATE 100 MG TABS take 1 tab at start of severe headache, may repeat in 2 hours. max 2 tab/day, 3 day/week, 9 tab/month. 02/10 SUMATRIPTAN SUCCINATE 69888151323 Verena Cheung DNP,MED SPEC,SENIOR SQL DBA GABAPENTIN 100 MG CAPS 1 PILL IN AM, 1 PILL IN AFTERNOON AND 3 PILLS AT BEDTIME FOR HEADACHES 10/07 GABAPENTIN 11733463392 Verena Cheung DNP,MED SPEC,SENIOR SQL DBA FOLIC ACID 800 MCG TABS Take 1 tablet by mouth once daily. 07/06 folic acid 800 mcg tablet 97461617615 Jian Shepard MD CLOBETASOL PROPIONATE 0.05 % OINT null 07/06 clobetasol 0.05% (TEMOVATE 0.05% OINTMENT) 0.05 % ointment 28224182166 Jian Shepard MD CALCIUM 600 MG CAPSULE Take 3 capsules by mouth once daily. 07/06 CALCIUM 600 MG CAPSULE Jian Shepard MD ACETAMINOPHEN 325 MG TABS Take 1-2 tablets by mouth every 4 hours if needed. Max acetaminophen dose: 4000mg in 24 hrs. 07/06 acetaminophen (TYLENOL) 325 mg tablet 14465274697 Jian Shepard MD DIPHENHYDRAMINE- ACETAMINOPHEN 25-500 MG (TYLENOL PM) 25-500 Take 1 tablet by mouth at bedtime if needed. Max acetaminophen dose: 4000mg in 24 hrs. 07/06 DIPHENHYDRAMINE- ACETAMINOPHEN 25-500 MG (TYLENOL PM) 25-500 Jian Shepard MD ECONAZOLE NITRATE 1 % CREA Apply topically to affected area(s) once daily. 07/06 econazole nitrate cream (SPECTAZOLE 1%) 1 % cream 65063825307 Jian Shepard MD MEDICATION ORDER COMPOSER Probiotic Daily-unknown dosage 07/06 MEDICATION ORDER COMPOSER Jian Shepard MD MULTIVITAMIN (DAILY MULTI-VITAMIN) TABLET Take 1 tablet by mouth once daily. 07/06 MULTIVITAMIN (DAILY MULTI-VITAMIN) TABLET Jian Shepard MD PEG 3350 17 GM/SCOOP POWD Take 17 g by mouth. 07/06 polyethylene glycol (MIRALAX; GLYCOLAX) 17 g powder for solu 99126515078 Jian Shepard MD ZINC 50 MG TABLET Take 1 tablet by mouth once daily. 07/06 ZINC 50 MG TABLET Jian Shepard MD zinc 50 mg tablet Take 1 tablet by mouth once daily. 07/06 zinc 50 mg tablet Cole Simmons SERTRALINE HCL 25 MG TABS Take 1 tablet by mouth once daily. 10/07 sertraline (ZOLOFT) 25 mg tablet 34669141532 Cole Simmons PEG 3350 17 GM/SCOOP POWD Take 17 g by mouth. 10/07 polyethylene glycol (MIRALAX; GLYCOLAX) 17 g powder for solu 06559303678 Cole Simmons PANTOPRAZOLE SODIUM 40 MG TBEC TAKE 1 TABLET BY ORAL ROUTE EVERY MORNING 10/07 pantoprazole (PROTONIX) 40 mg delayed-release tablet 59803450414 Cole Simmons multivitamin (DAILY MULTI-VITAMIN) tablet Take [...] mouth at bedtime. 02/10 melatonin 1 mg 94830016006 Cole Simmons medication order composer Probiotic Daily-unknown dosage 07/06 medication order composer Cole Simmons LORAZEPAM 1 MG TABS Take 1 tablet by mouth once daily if needed. 02/10 LORazepam (ATIVAN) 1 mg tablet 57743440025 Cole Simmons FOLIC ACID 800 MCG TABS Take 1 tablet by mouth once daily. 07/06 folic acid 800 mcg tablet 63118612291 Cole Simmons FLECAINIDE ACETATE 50 MG TABS Take 1 tablet by mouth every 12 hours. 02/10 flecainide (TAMBOCOR) 50 mg tablet 41527605066 Cole Simmons ESTRACE 0.1 MG/GM CREA APPLY 0.5 GRAMS VAGINALLY NIGHTLY FOR 2 WEEKS THEN APPLY TWICE WEEKLY 10/07 ESTRACE 0.01 % (0.1 mg/gram) vaginal cream 60445856625 Cole Simmons ECONAZOLE NITRATE 1 % CREA Apply topically to affected area(s) once daily. 10/07 econazole nitrate cream (SPECTAZOLE 1%) 1 % cream 33838756296 Cole Simmons Docosahexanoic Acid-Eicosapent (FISH OIL) 120-180 [...] bedtime. 10/07 dicyclomine (BENTYL) 20 mg tablet 63873148556 Cole Simmons CLOBETASOL PROPIONATE 0.05 % OINT null 10/07 clobetasol 0.05% (TEMOVATE 0.05% OINTMENT) 0.05 % ointment 87164213870 Cole Simmons calcium 600 mg capsule Take 3 capsules by mouth once daily. 07/06 calcium 600 mg capsule Cole Simmons ASPIRIN 81 MG TBEC Take 2 tablets by mouth once daily with a meal. 01/06 aspirin enteric coated 81 mg tablet 22661618841 Cole Simmons ACETAMINOPHEN 325 MG TABS Take 1-2 tablets by mouth every 4 hours if needed. Max acetaminophen dose: 4000mg in 24 hrs. 07/06 acetaminophen (TYLENOL) 325 mg tablet 28345726299 Cole Simmons Medications Administered No information available. Allergies, Adverse Reactions, Alerts Allergy Name Reaction Description Start Date Severity Statu s Provider SULFA (SULFONAMIDE ANTIBIOTICS) *Unknown Mild Active Cole Smimons AMOXICILLIN *Unknown Mild Active Cole Anderson apolinar Results Date Name Value Unit Range Flag Description Lab Report: 09/23/19 - 03/22/2 0 SGPT (ALT) normal U/L Alanine aminotransferase [Enzymatic activity/volume] in Serum or Plasma Office Visit: RECURRENT [facility] 05/06/20 09:12- 05/06/20 09:12 REFERR... 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 Internal Other: Verbal Autho rization/Emergency [...] Date Detail Appointment 09:00 AM Verena morales DNP,MED SPEC,SENIOR SQL DBA, [id number] [address], [address], [address], Appointment 09:20 [place], [id number] [address], [facility] [address], [place], [address], Pending order Follow up Pending order Follow [...] Date Entry Date [place] [address] [place] [address] Trigger Point Injections 2 ORDERS Patient Instructions CPT-04403 Trigger point inj (3+ musc) CPT-J1100 Dexamethasone -- 10 mg 07/07 CPT-00183 Trigger point inj (3+ musc) CPT-J1100 Dexamethasone -- 10 mg 03/04 [address] [place] [address] Trigger Point Injections 2 [id number] Documentation of current medicatio ns CPT-91646 Trigger point inj (3+ musc) CPT-J1100 Dexamethasone -- 10 mg 10/07 ORDERS Trigger Point Injections 09/23/21 CPT-48921 Trigger point inj (3+ musc) CPT-J1100 Dexamethasone -- 10 mg 07/16 ORDERS Trigger Point Injections 202 09/01/29 [id number] Documentation of current medicatio ns ORDERS Patient Instructions ORDERS Follow up in clinic ORDERS Trigger Point Injections 202 08/30/06 CPT-40161 Trigger point inj (3+ musc) CPT-J1100 Dexamethasone -- 10 mg 04/23 CPT-15200 Trigger point inj (3+ musc) CPT-J1100 Dexamethasone - 5 mg ORDERS Trigger Point Injections 202 08/27/14 CPT-J1100 Dexamethasone -- 10 mg 11/06 CPT-92348 Trigger point inj (3+ musc) ORDERS Trigger Point Injections 202 08/23/29 CPT-49168 Trigger point inj (3+ musc) CPT-J1100 Dexamethasone - 5 mg ORDERS Trigger Point Injections 202 08/05/06 [id number] Documentation of current medicatio ns ORDERS Patient Instructions ORDERS Follow up ANTONIO in clinic or telemedicine 2 CPT-94790 Trigger point inj (3+ musc) CPT-J1100 Dexamethasone - 5 mg ORDERS Trigger Point Injections 202 08/02/15 CPT-60961 Trigger point inj (3+ musc) CPT-J1100 Dexamethasone -- 10 mg 02/07 ORDERS Follow up ANTONIO in clinic 2021 ORDERS Trigger Point Injections 202 07/30/08 CPT-86570 Trigger point inj (3+ musc) CPT-J1100 Dexamethasone -- 10 mg 10/31 ORDERS Occipital Nerve Bloc k and Trigger Point Injections ORDERS Physical Therapy CPT-74229 Trigger point inj (3+ musc) CPT-J1100 Dexamethasone -- 10 mg 08/08 ORDERS Trigger Point Injections 07/05/10 ORDERS Occipital Nerve Bloc k and Trigger Point Injections ORDERS Occipital Nerve Bloc k and Trigger Point Injections ORDERS Follow up ANTONIO CPT-26962 Trigger point inj (3+ musc) CPT-J1100 Dexamethasone -- 10 mg 05/05 ORDERS Trigger Point Injections 202 06/29/26 ORDERS Follow up ANTONIO [id number] Documentation of current medicatio ns ORDERS Instructions for Staff 02/10 CPT-92319 Trigger point inj (3+ musc) CPT-95211 Occipital nerve bloc k (Greater ONB) unilateral CPT-J1100 Dexamethasone -- 10 mg 02/10 ORDERS Trigger Point Injections 202 06/27/28 CPT-84058 Trigger point inj (3+ musc) CPT-J1100 Dexamethasone - 5 mg [id number] Documentation of current medicatio ns CPT-D9475I ProHance Gadolinium- based MR Contrast - 15 ml vial CPT-91208 MRI Brain W/WO CPT-91417 Nerve Conduction 5-6 studies CPT-67389 EMG with NCS (5+ muscles) - 1 limb 2/05 CPT-T0546Q ProHance Gadolinium- based MR Contrast - 15 ml vial [id number] MRI-Brain W/WO ORDERS Patient Instructions ORDERS Instructions for Staff 07/13 [id number] Documentation of current medicatio ns ORDERS EMG left upper ext 9 ORDERS Follow up ANTONIO [id number] Other Radiology ORDERS Follow up ANTONIO after testing CPT-78070 MRI Cervical W/O [id number] MRI-Cervical W/O ORDERS ESR (Sedimentation Rate) 202 [id number] Documentation of current medicatio ns LOINC 65243-0 Fall risk assessment 07/06 Vital Signs Date [...]
[2024-09-24 09:45] VITALS: O2SAT 96
[2024-09-24] MEDS: 0.9 % SODIUM CHLORIDE 1000 ml 1,000 ML IV (09:49)
[2024-09-24 09:57] LABS: Basophils Absolute Auto 0.02 K/uL (0.00-0.30); Basophils Percent Auto 0.2 % (0.0-3.0); Eosinophils Absolute Auto 0.08 K/uL (0.00-0.50); Eosinophils Percent Auto 0.8 % (0.0-7.0); Hematocrit 38.9 % (33.0-51.0); Hemoglobin* 12.6 gm/dL (12.0-16.0); Immature Granulocytes Abs Auto 0.01 K/uL (0.00-0.30); Immature Granulocytes Pct Auto 0.1 %; Lymphocytes Percent Auto 5.4 % (20-44); Mean Corpuscular HGB Conc 32 gm/dL (32-36); Mean Corpuscular Hemoglobin 30 pg (26-34); Mean Corpuscular Volume 94 fL (80-100); Monocytes Percent Auto 6.4 % (0.0-11.0); Neutrophils Percent Auto 87.1 % (42.0-72.0); Platelet Count* 196 K/uL (140-440); RDW Coefficient of Variation % 13.6 % (11.5-15.5); Red Blood Count 4.15 m/uL (4.00-5.20); White Blood Count* 9.79 K/uL (4.50-11.00)
[2024-09-24 10:01] LABS: Slide Review Reflex No
[2024-09-24 10:02] VITALS: BP 117/70; PULSE 71; RESP 17; O2SAT 99
[2024-09-24 10:14] LABS: Albumin* 4.5 g/dL (3.3-5.0); Chloride* 103 mmol/L (96-114)
[2024-09-24 10:15] LABS: Potassium* 4.5 mmol/L (3.6-5.1); Sodium* 139 mmol/L (135-149)
[2024-09-24 10:17] LABS: Blood Urea Nitrogen* 16 mg/dL (7-30); Creatinine* 0.6 mg/dL (0.5-1.5); Est. Creatinine Clearance* 47.72; Estimated Glomerular Filt Rate 95 ml/min
[2024-09-24 10:18] LABS: Alanine Aminotransferase* 25 U/L (4-35); Alkaline Phosphatase* 111 U/L (40-150); Anion Gap 6 mEq/L (7-15); Aspartate Amino Transferase* 37 U/L (12-35); Bilirubin Direct* 0.2 mg/dL (0.0-0.5); Bilirubin Total* 0.6 mg/dL (0.1-1.5); Calcium* 9.2 mg/dL (8.4-10.6); Carbon Dioxide* 30 mmol/L (20-32); Glucose* 159 mg/dL (60-115); Total Protein* 7.3 g/dL (6.0-8.3)
[2024-09-24 10:28] LABS: C Reactive Protein* < 0.5 mg/dL (0.5-1.0); NT Pro B Type NatriureticPept* 23 pg/mL
[2024-09-24 10:32] VITALS: BP 128/71; PULSE 66; RESP 14; O2SAT 98
[2024-09-24 11:02] VITALS: BP 117/65; PULSE 61; RESP 20; O2SAT 98
== END 2024-09-24 11:25 | disposition home or self-care (01) ==
PROVIDERS: Emergency Provider Family Medicine; PCP Physician Assistant Medical
DX: R55 Syncope and collapse (principal)
CPT/HCPCS: 36415; 80048; 80076; 83880; 84484; 85025; 86140; 93005; 94761; 96360; 99284; 99285; J7030

== ENCOUNTER 2024-09-29 10:04 | Outpatient (CLI) | payer MEDICARE, SELFPAY | END 2024-09-29 10:05 | disposition home or self-care (01) | PROVIDERS: PCP Physician Assistant Medical; Visit Provider Physician Assistant Medical | DX: R63.4 Abnormal weight loss (principal); R53.83 Other fatigue; K51.90 Ulcerative colitis, unspecified, without complications; R55 Syncope and collapse | CPT/HCPCS: 80053; 82043; 82570; 84443 ==

== ENCOUNTER 2024-10-08 15:32 | Outpatient (CLI) | payer MEDICARE, SELFPAY ==
--- NOTE | 2024-10-08 16:00 | CRLHL7_ITS ---
For Patients: As a result of the Century Cures Act, medical imaging exams and procedure reports are released immediately into your electronic medical record. You may view this report before your referring provider. If you have questions, please contact your health care provider. INDICATION: Abdominal pain. TECHNIQUE: Multiplanar CT examination of the abdomen and pelvis was performed after the administration of 100 mL Omnipaque 350 intravenous contrast. COMPARISON: CT chest abdomen pelvis 02/28/2024. FINDINGS: Lower chest: No focal consolidation. Normal heart size. No pleural effusions or pneumothorax. Liver: Unremarkable. Gallbladder: Unremarkable. Biliary: Unremarkable. Pancreas: Within normal limits. Spleen: Unremarkable. Adrenal glands: Unremarkable. Renal/ureters/bladder: Normal in size and symmetrically enhancing. No obstructive uropathy. No hydronephrosis or obstructive urinary calculi. Simple appearing right renal cyst. The ureters appear unremarkable. The bladder is within normal limits. Pelvis: Hysterectomy. No adnexal masses. Gastrointestinal: Mild wall thickening and hyperenhancement involving loops of nondistended, fluid-filled small bowel diffusely. No bowel obstruction. Normal appendix. No significant colonic diverticulosis. Severe colonic stool burden. Vasculature: No aortic aneurysm. The portal vein remains patent. Moderate atherosclerotic calcifications. Lymph nodes: Prominent small bowel mesenteric lymph nodes, likely reactive. No pathologic lymphadenopathy by size criteria. Peritoneum: No free fluid or pneumoperitoneum. No drainable fluid collections. Abdominal wall/soft tissues: Unremarkable. Bones: No acute osseous abnormalities. Multilevel degenerative changes of the visualized thoracolumbar spine. Stable mild compression deformity of the superior endplate of T11, chronic. IMPRESSION: Mild diffuse wall thickening and hyperenhancement involving loops of nondistended, fluid-filled small bowel, suggestive of a nonspecific infectious versus inflammatory enteritis. No bowel obstruction. Please note that all CT scans at this facility use dose modulation, iterative reconstruction, and/or weight-based dosing when appropriate to reduce radiation dose to as low as reasonably achievable. Dictated by Silverio Garcia MD @ 10/08/2024 4:36:00 PM (Electronically Signed)
== END 2024-10-08 15:33 | disposition home or self-care (01) ==
LOC: CT 15:33
PROVIDERS: PCP Physician Assistant Medical; Visit Provider Internal Medicine Nephrology
DX: R10.32 Left lower quadrant pain (principal)
CPT/HCPCS: 74177; Q9967

== ENCOUNTER 2024-10-10 09:30 | Outpatient (CLI) | payer MEDICARE, SELFPAY | END 2024-10-10 09:31 | disposition home or self-care (01) | LOC: NFLDREF 10-14 17:41 | PROVIDERS: PCP Physician Assistant Medical; Referring Provider Physician Assistant Medical; Visit Provider Internal Medicine Nephrology | DX: R10.9 Unspecified abdominal pain (principal) | CPT/HCPCS: 83993 ==

== ENCOUNTER 2024-11-06 10:04 | Outpatient (CLI) | payer MEDICARE, SELFPAY ==
[2024-11-06 10:55] LABS: Creatinine* 0.7 mg/dL (0.5-1.5); Estimated Glomerular Filt Rate 91 ml/min
--- NOTE | 2024-11-06 11:00 | CRLHL7_ITS ---
For Patients: As a result of the Century Cures Act, medical imaging exams and procedure reports are released immediately into your electronic medical record. You may view this report before your referring provider. If you have questions, please contact your health care provider. Indication: Follow-up mild diffuse wall thickening and hyperenhancement involving loops of nondistended, fluid-filled small bowel on prior CT Technique: CT Abdomen/Pelvis W/ ISOVUE 370 64 cc intravenous contrast WITH ORAL CONTRAST BREEZA 3 BOTTLES Please note that all CT scans at this facility use dose modulation, iterative reconstruction, and/or weight-based dosing when appropriate to reduce radiation dose to as low as reasonably achievable. Comparison: 10/08/2024 Findings: Lung bases are clear. Hepatic steatosis. No intrahepatic mass. Normal gallbladder. Spleen is within normal limits. Hyperdense material within the dependent stomach, incidental. Normal adrenal glands. Water attenuation cyst upper pole right kidney is unchanged, measuring 1.9 cm. Normal pancreas. Atherosclerotic changes. No aneurysm. No hiatal hernia. Normal bladder. No pelvic mass. Moderately increased stool in the colon particularly within the right colon. No small bowel obstruction. Interval clearing of wall thickening regarding loops of jejunum when compared to the prior study. No free air, free fluid or abscess. A few scattered sub cm mesenteric lymph nodes are incidentally noted. Multilevel degenerative disc disease lumbar spine. Compression deformity T11 is unchanged. Impression: Interval resolution of the previously noted circumferential wall thickening of the jejunum consistent with resolved enteritis. Increased stool throughout the colon particularly on the right colon consistent with constipation. No mechanical obstruction. Hepatic steatosis. Incidental simple cyst right kidney. Chronic compression deformity T11. Please note that all CT scans at this facility use dose modulation, iterative reconstruction, and/or weight-based dosing when appropriate to reduce radiation dose to as low as reasonably achievable. Dictated by Kemal Ugalde MD @ 11/07/2024 12:57:11 PM (Electronically Signed)
--- NOTE | 2024-11-06 12:15 | CRLHL7_ITS ---
For Patients: As a result of the Century Cures Act, medical imaging exams and procedure reports are released immediately into your electronic medical record. You may view this report before your referring provider. If you have questions, please contact your health care provider. CLINICAL HISTORY: Abdominal pain TECHNIQUE: 2D interiano scale ultrasound. In addition color Doppler and spectral Doppler analysis was performed of the pelvis using a transabdominal and transvaginal approach. COMPARISON CT 10/08/2024 FINDINGS: The myometrium has a normal uniform echotexture. The uterus measures 5.3 x 2.4 x 3.6 cm. The endometrial lining appears normal and measures 4.5 mm in thickness. The right ovary measures 2.0 x 1.0 x 1.0 cm in size and the left ovary is not visualized. The right ovary demonstrates normal arterial and venous blood flow on color Doppler and spectral Doppler analysis. There are no suspicious fluid collections within the cul-de-sac. IMPRESSION: Normal uterus and right ovary. Nonvisualization left ovary. Dictated by Kemal Ugalde MD @ 11/06/2024 12:04:33 PM (Electronically Signed)
== END 2024-11-06 10:05 | disposition home or self-care (01) ==
LOC: CT 10:05
PROVIDERS: PCP Physician Assistant Medical; Visit Provider Physician Assistant Medical
DX: R10.9 Unspecified abdominal pain (principal); K76.0 Fatty (change of) liver, not elsewhere classified; N28.1 Cyst of kidney, acquired; M43.8X4 Other specified deforming dorsopathies, thoracic region; R93.89 Abnormal findings on diagnostic imaging of other specified body structures
CPT/HCPCS: 36415; 74177; 76830; 76856; 82565; 93976; Q9967

== ENCOUNTER 2024-12-25 09:00 | Outpatient (CLI) | payer MEDICARE, SELFPAY | END 2024-12-25 09:01 | disposition home or self-care (01) | LOC: NFLDREF 12-30 03:17 | PROVIDERS: PCP Physician Assistant Medical; Referring Provider Physician Assistant Medical; Visit Provider Internal Medicine Nephrology | DX: E87.5 Hyperkalemia (principal); K58.9 Irritable bowel syndrome, unspecified; R10.9 Unspecified abdominal pain; R80.9 Proteinuria, unspecified; R53.83 Other fatigue; R41.89 Other symptoms and signs involving cognitive functions and awareness; R63.4 Abnormal weight loss; N18.1 Chronic kidney disease, stage 1; D64.9 Anemia, unspecified | CPT/HCPCS: 80069; 82043; 82570; 84450; 84460; 84550; 86140 ==

== ENCOUNTER 2025-03-13 09:13 | Outpatient (CLI) | payer MEDICARE, SELFPAY | END 2025-03-13 09:14 | disposition home or self-care (01) | LOC: NFLDREF 03-18 13:06 | PROVIDERS: PCP Physician Assistant Medical; Referring Provider Physician Assistant Medical; Visit Provider Physician Assistant Medical | DX: Z00.00 Encounter for general adult medical examination without abnormal findings (principal); Z78.0 Asymptomatic menopausal state; E78.5 Hyperlipidemia, unspecified; M85.80 Other specified disorders of bone density and structure, unspecified site | CPT/HCPCS: 80061; 82306; 84443 ==

== ENCOUNTER 2025-03-20 11:00 | Outpatient (RCR) | payer MEDICARE, SELFPAY ==
--- NOTE | 2025-01-20 11:05 | PT.OPE ---
PT [place] [facility] Eval PT [facility] Out[facility] Eval Start: 01/20/25 08:35 Freq: Status: Active Protocol: Document 01/20/25 11:04 HANNA (Rec: 01/20/25 11:04 ASHLEET [id number]) E-signed By Hawk Chin PT Physical Therapy Outpatient Evaluation Insurance Information Recert Due Date 04/20/25 Insurance Name Medicare B Medical Diagnosis M76.891 - other specified enthesopathies of R lower limb, excluding foot Treating Diagnosis M25.551 - R hip pain Referring Ang Colbert MD Subjective Preferred Name Zuri Subjective Pt presents with complaints of R hip pain. Pt had an L4 -5 JANET in July 2024 which did not provide much relief for her pain. Her pain has becoming increasingly painful in her groin. Pt notes that she has bulging discs in her low back. Pain started at the back side of her R hip bone and occasionally migrates to the front side of her hip. Pt still riding recumbent bike and doing power plates. These both feel good to perform and does not have residual hip pain following. Walking causes significant pain in her R lateral hip even when she goes grocery shopping. Pain Comments Current Work Status Retired Precautions Therapy Limitations/ Not Limited Systems Review Objective Other/Pertinent Lumbar ROM Objective Extension - Moderate limitations, some pain noted in R anterior hip with prolonged hold; Pt notes this does not feel like a muscle Flexion - no limitations, no pain, some discomfort behind B knees R/L Side Bend - limitations L>R; feels increased pain with R sidebend in R TFL region R/L Rotation - minimal limitations, no pain R Hip ROM Flexion - 130 IR/ER - 33/33 Extension - 10 L Hip ROM Flexion - 130 IR/ER - 33/33 Extension - 10 R knee ROM - WNL L knee ROM - WNL R Hip Strength Flexion - 4/5 MMT Abduction - 4/5 MMT *pain in R TFL Adduction - 5/5 MMT IR - 4/5 MMT ER - 5/5 MMT Extension - 4+/5 MMT L Hip Strength Flexion - 4/5 MMT Abduction - 4/5 MMT Adduction - 5/5 MMT IR - 5/5 MMT ER - 4/5 MMT Extension - 4/5 MMT R knee Extension - 5/5 MMT R Knee Flexion - 5/5 MMT L knee Extension - 5/5 MMT L knee Flexion - 5/5 MMT R ankle DF - 5/5 MMT L ankle DF - 5/5 MMT Palpation: pt reports pain/tenderness with palpation to R TLF, piriformis Gait: no deviations noted DTRs: 2+ patella, Achilles bilaterally Special Testing Slump: positive for neural tension B SLR: some pain initially in R TFL that migrates to gastroc pain with increased elevation FADIR: pinching in B hips MADELINE: feels stretching pain in R TFL Maria E's: negative Piriformis: positive R Hamstring: negative Pelvis: R upslip Leg Length (R/L): 94.5/93.5cm Assessment Assessment/ Zuri is a very pleasant 74 year old female who Impression presents to our clinic for evaluation and treatment of R hip pain. It does seem that Zuri's pain is localized to her R TFL muscles. She did have some pain with SLR testing in her R TFL which improved following STM and exercises for TFL. I do think that her pain was the result of a slight muscle spasm with shortening of the muscle via hip flexion. Testing for disc herniation and radicular symptoms was negative this date. Pt does have excellent ROM and strength of B hips but hip abductors are weak bilaterally with overcompensation of TFL bilaterally. The nature of the pts condition was explained and all questions were answered to the pts satisfaction. Skilled PT services are medically necessary to address deficits and return patient to highest level of function. Recommend physical therapy sessions 1-2/week for 4-6 weeks. Pt agrees with this plan. Printout of HEP was given for I completion and pt gives verbal understanding of each exercise. Primary Functional Walking Limitations Plan of Care Rehabilitation Excellent Potential Physical Therapy STG - To be completed in 4 weeks: Goals 1. Pt will report reduction of R hip pain by factor of 2 so that she may continue to walk with tolerable level of pain. 2. Pt will demo 5/5 MMT for all LE motions bilaterally to provide greater support to hips with ambulation. LTG - To be completed in 6-8 weeks: 1. Pt to be I with HEP so that they may I manage progression of symptoms. 2. Pt will report max 2/10 pain with ambulation so that she may go for walks with pleasure. Treatment Plan/ Dry Needling,Electrical Stimulation,Gait Training,Heat, Direct Interventions Ice/Cold/Vasopneumatic,Joint Mobilization,Manual Therapy,Neuromuscular Re-ed,Self-Care/Home Management, Therapeutic Activities,Therapeutic Exercises,Ultrasound Frequency/Duration 1-2/week for 4-6 weeks Patient Will Be Completion of LTG(s),Skills Plateau,Independent w/HEP, Discharged From Independently Progressing Therapy Evaluation Billing Untimed Code 40 Treatment Minutes PT Eval No Charge No Complexity Low Certification Information Initial 01/20/25 Certification Date Ending Certification 04/20/25 Date Provider Signature Yes Required Provider Signature POC & Medical Necessity Shows Agreement With Physician NPI Number Write NPI# Here Physician Comment/ : Change Physician Signature Please Sign/Date Here & Date Requested
--- NOTE | 2025-02-17 10:47 | PT.OPDN ---
PT [place] [facility] Daily Note PT [facility] Outpatient Daily Note Start: 01/20/25 08:35 Freq: Status: Active Protocol: Document 02/17/25 09:00 CJT (Rec: 02/17/25 10:46 CJT [id number]) E-signed By Hawk Chin, PT PT [facility] Daily Progress Note Visit Information Note Type Recert/Progress Note Visit Number [id number] Physician Authorized eval and treat Visits Insurance Information Recert Due Date 04/20/25 Insurance Name Medicare B Medical Diagnosis M76.891 - other specified enthesopathies of R lower limb, excluding foot Treating Diagnosis M25.551 - R hip pain Referring Ang Colbert MD Subjective Preferred Name Zuri Subjective Pt notes that last Sunday she noticed that she did not have any pain in her R anterior hip upon standing which came as a surprise. Was a little sore in her glutes following last treatment session but attributes this to improved muscle activation. Pt rates improvement in her symptoms as 10-20% at this time. Pain Comments Home Exercise Home Exercise Access Code: [email or web address] Comments URL: [email or web address] Date: 01/30/2025 Prepared by: Anai Pickensna Exercises - Straight Leg Raise - 1 x daily - 7 x weekly - 3 sets - 20 reps - Supine Bridge with Resistance Band - 1 x daily - 7 x weekly - 3 sets - 20 reps - Clamshell with Resistance - 1 x daily - 7 x weekly - 3 sets - 20 reps - Standing March with Counter Support - 1 x daily - 7 x weekly - 3 sets - 10-20 reps - Standing Glute Med Mobilization with Small Ball on Wall - 7 x weekly - Quadruped Piriformis Stretch - 1-2 x daily - 7 x weekly - 60 seconds hold - Supine Figure 4 Piriformis Stretch - 1-2 x daily - 7 x weekly - 60 seconds hold - Half Kneeling Hip Flexor Stretch - 1-2 x daily - 7 x weekly - 60 seconds hold - Sidelying Fire Hydrant - 1 x daily - 7 x weekly - 2 sets - 5-7 reps Objective Other/Pertinent Lumbar ROM Objective Extension - Moderate limitations, some pain noted in R anterior hip with prolonged hold; Pt notes this does not feel like a muscle Flexion - no limitations, no pain, some discomfort behind B knees R/L Side Bend - limitations L>R; feels increased pain with R sidebend in R TFL region R/L Rotation - minimal limitations, no pain R Hip ROM Flexion - 130 IR/ER - 33/33 Extension - 10 L Hip ROM Flexion - 130 IR/ER - 33/33 Extension - 10 R knee ROM - WNL L knee ROM - WNL R Hip Strength Flexion - 4/5 MMT Abduction - 4/5 MMT *pain in R TFL Adduction - 5/5 MMT IR - 4/5 MMT ER - 5/5 MMT Extension - 4+/5 MMT L Hip Strength Flexion - 4/5 MMT Abduction - 4/5 MMT Adduction - 5/5 MMT IR - 5/5 MMT ER - 4/5 MMT Extension - 4/5 MMT R knee Extension - 5/5 MMT R Knee Flexion - 5/5 MMT L knee Extension - 5/5 MMT L knee Flexion - 5/5 MMT R ankle DF - 5/5 MMT L ankle DF - 5/5 MMT Palpation: pt reports pain/tenderness with palpation to R TLF, piriformis Gait: no deviations noted DTRs: 2+ patella, Achilles bilaterally Special Testing Slump: positive for neural tension B SLR: some pain initially in R TFL that migrates to gastroc pain with increased elevation FADIR: pinching in B hips MADELINE: feels stretching pain in R TFL Maria E's: negative Piriformis: positive R Hamstring: negative Pelvis: R upslip Leg Length (R/L): 94.5/93.5cm Patient Instructed Yes in Risks/Benefits Therapeutic Exercise Therapeutic Exercise 35 Minutes (minutes) Therapeutic Exercise Bike - 5 minutes, level 8.5 : To Restore Bridge with PPT, TA contraction 2 x 15, 4 hold (second Functional Status set with med/heavy band at knees) *pt notes increased glute and hip abductor Hooklying clamshell with med/heavy band 2 x 20 Hip extension in quadruped *pt notes discomfort in anterior R hip 1/2 kneeling hip flexor stretch Squats 2 x 10 CC Walking, 22.5lbs, lateral, forward x 3 rounds ea Manual Therapy Techniques Manual Therapy 10 Minutes (minutes) Manual Therapy STM to R TFL, rectus femoris, ITB, glute min to reduce Techniques tissue tension and diminish spasm. Treatment Minutes Untimed Code 11 Treatment Minutes Timed Code Treatment 45 Minutes Total Treatment Time 56 Billing Units Manual Therapy Units 1 Therapeutic Exercise 2 Units Assessment/Impression Assessment/ Zuri has failed to make substantial progress in her Impression symptoms up to this point. Today she informed me that her pain in R anterolateral hip is approx 10-20% improved at this time. Pt has been faithful with her HEP and will continue performing every other day moving forward. I do think that it would be reasonable for Zuri to revisit with Dr. Ag at this time. I recommended that she inquire about a repeat JANET injection and R hip MRI. Pts R hip pain continues to appear to be muscular in nature, but I'd be curious to see if Dr. Ag can tease out any other symptoms or findings that we have missed in therapy. Pts chart will be held until further notice. If pt does not return to our clinic in 60 days, this note will serve as her discharge note. Primary Functional Walking Limitations Plan of Care Physical Therapy STG - To be completed in 4 weeks: Goals 1. Pt will report reduction of R hip pain by factor of 2 so that she may continue to walk with tolerable level of pain. 2. Pt will demo 5/5 MMT for all LE motions bilaterally to provide greater support to hips with ambulation. LTG - To be completed in 6-8 weeks: 1. Pt to be I with HEP so that they may I manage progression of symptoms. 2. Pt will report max 2/10 pain with ambulation so that she may go for walks with pleasure. Daily Plan of Care Continue per POC
== END 2025-06-02 09:02 | disposition home or self-care (01) ==
PROVIDERS: PCP Physician Assistant Medical; Visit Provider Orthopaedic Surgery Sports Medicine
DX: M76.891 Other specified enthesopathies of right lower limb, excluding foot (principal); M67.951 Unspecified disorder of synovium and tendon, right thigh; M48.061 Spinal stenosis, lumbar region without neurogenic claudication; M41.9 Scoliosis, unspecified; M51.362 Other intervertebral disc degeneration, lumbar region with discogenic back pain and lower extremity pain; Z51.89 Encounter for other specified aftercare
CPT/HCPCS: 97110; 97140; 97161; 97530; 97535

== ENCOUNTER 2025-04-06 07:56 | Outpatient (CLI) | payer MEDICARE, SELFPAY | END 2025-04-06 07:57 | disposition home or self-care (01) | LOC: NFLDREF 18:51 | PROVIDERS: PCP Physician Assistant Medical; Referring Provider Physician Assistant Medical; Visit Provider Internal Medicine Nephrology | DX: D64.9 Anemia, unspecified (principal); R80.9 Proteinuria, unspecified; N18.1 Chronic kidney disease, stage 1; K51.90 Ulcerative colitis, unspecified, without complications | CPT/HCPCS: 80069; 82043; 82570; 82728; 83540; 83550; 83970; 86140; 87086 ==

== ENCOUNTER 2025-04-09 08:32 | Outpatient (CLI) | payer MEDICARE, SELFPAY ==
--- NOTE | 2025-05-12 12:04 | W.PM.SLEEP ---
Sleep Study Details Details Interpreting Provider: Oly Date of Sleep Study: 04/09/25 Sleep Study Details: STUDY TYPE:? Home unattended ? BMI:? 19.2 ORDERING PROVIDER:? Alex INDICATION:? Concern for sleep apnea ? SLEEP SUMMARY:? 422 minutes monitored RESPIRATORY SUMMARY:? AHI 4 per CMS guideline, 6 rule 1 a Low oxygen 81 27% of study oxygen less than 90% Snoring 100% PERIODIC LIMB MOVEMENTS OF SLEEP:? Not recorded CARDIAC:? Range 51-127, mean 61.4 beats per minute IMPRESSION:? Primary snoring. Hypoxemia. Per CMS guidelines this is a negative study however the patient's oxygen level was less than 90% for 27% of the study. RECOMMENDATION: Further cardiopulmonary evaluation may be indicated.
== END 2025-04-09 08:33 | disposition home or self-care (01) ==
PROVIDERS: PCP Physician Assistant Medical; Visit Provider Physician Assistant Medical
DX: R06.83 Snoring (principal); G47.36 Sleep related hypoventilation in conditions classified elsewhere
CPT/HCPCS: 95806

== ENCOUNTER 2025-04-17 13:03 | Outpatient (CLI) | payer MEDICARE, SELFPAY ==
--- NOTE | 2025-04-17 13:20 | CRLHL7_ITS ---
For Patients: As a result of the Century Cures Act, medical imaging exams and procedure reports are released immediately into your electronic medical record. You may view this report before your referring provider. If you have questions, please contact your health care provider. INDICATION: BILATERAL SCREENING MAMMOGRAM, ASYMPTOMATIC 74 Y/O FEMALE COMPARISON: 04/15/2024, 07/27/2022, 07/15/2021 TECHNIQUE: Digital mammogram in CC and MLO projections including computer-aided detection (CAD) and tomosynthesis. BREAST COMPOSITION: The breasts are heterogeneously dense, which may obscure small masses. FINDINGS: No suspicious findings. ASSESSMENT: BI-RADS 2 Benign RECOMMENDATION: Annual screening mammogram. A lay language report of this examination will be provided to the patient. Dictated by: Kemal Ugalde MD @ 04/20/2025 08:50:21 (Electronically Signed)
== END 2025-04-17 13:04 | disposition home or self-care (01) ==
LOC: MAMMO 13:04
PROVIDERS: PCP Physician Assistant Medical; Visit Provider Physician Assistant Medical
DX: Z12.31 Encounter for screening mammogram for malignant neoplasm of breast (principal); R92.333 Mammographic heterogeneous density, bilateral breasts
CPT/HCPCS: 77063; 77067

== ENCOUNTER 2025-05-20 20:04 | Outpatient (CLI) | payer MEDICARE, SELFPAY ==
--- NOTE | 2025-05-26 12:11 | W.PM.SLEEP ---
Sleep Study Details Details Date of Sleep Study: 05/20/25 Sleep Study Details: STUDY TYPE:? [] ? BMI:? [] ORDERING PROVIDER:? [] INDICATION:? [] ? SLEEP SUMMARY:? [] RESPIRATORY SUMMARY:? [] PERIODIC LIMB MOVEMENTS OF SLEEP:? [] CARDIAC:? [] IMPRESSION:? [] RECOMMENDATION: []
--- NOTE | 2025-05-26 17:05 | W.PM.SLEEP ---
Sleep Study Details Details Interpreting Provider: Brenton Aldridge Date of Sleep Study: 05/20/25 Sleep Study Details: STUDY TYPE:?Home sleep study ? BMI:?18.7 ORDERING PROVIDER:? [] INDICATION: The patient is a 74-year-old female who presents for evaluation of sleep apnea. ? SLEEP SUMMARY:? [] RESPIRATORY SUMMARY:? [] PERIODIC LIMB MOVEMENTS OF SLEEP:? [] CARDIAC:? [] IMPRESSION:?Sleep study: Total sleep time 325 minutes. AHI per CMS guideline is 5.5, supine 9.6, nonsupine 4.9. No supine REM stage sleep. RDI was 15 supine, 8.7 nonsupine. Periodic limb movements none. Cardiac awake 57, asleep 56. No arrhythmias noted. RECOMMENDATION: ASSESSMENT AND PLAN 1. Mild obstructive sleep apnea with supine position dependency. The sleep study conducted on 05/26/2025 showed an AHI of 5.5, with a supine AHI of 9.6 and a non-supine AHI of 4.9. The RDI was 15 supine and 8.7 non-supine. There were no periodic limb movements or arrhythmias noted. Treatment options discussed include CPAP or a dental appliance.
== END 2025-05-20 20:05 | disposition home or self-care (01) ==
LOC: SLEEP 20:06
PROVIDERS: PCP Physician Assistant Medical; Visit Provider Otolaryngology
DX: G47.33 Obstructive sleep apnea (adult) (pediatric) (principal)
CPT/HCPCS: 95810